=== PATIENT | male | born 1965 | race Caucasian/White ===

== ENCOUNTER → 2021-01-04 12:46 | Outpatient (CLI) | payer OTHER, SELFPAY ==
--- NOTE | 2021-01-04 | IMM_PTH ---
PATIENT: EMERY VYAS LOC: [place] U#:[id number] AGE/SX: 59/M ROOM: RE01/04/[address]: Dr. Ebenezer Rivera MD : 1965 BED: DIS: SPEC #: [id number] RECD: 01/10/21 07:39 STATUS: CHIDI REIleana #: [id number] ZOHRA: 01/04/21 00:[address]: Ebenezer Rivera DEPT: IMMUNOHISTOCHEMISTRY RECD BY: Julieta Arellano ENTERED: 01/10/21 07:39 SP TYPE: IMMUNO OTHR DR: Dr. Phoenix Oseguera MD Tissues: Neck, NOS Procedures: CK5-6 (add) P53 (add) Pankeratin (initial) P40 (add) PHYSICIAN & INSTITUTION [place] [id number] SPECIMEN INFORMATION: Tissue Source: Left upper neck mass, fine needle aspiration Clinical Info: Left upper neck mass Specimen Number: [id number] CPT code: 97921, 22812 x3 METHODOLOGY: Deparaffinized sections of prefer/formalin-fixed tissue or PAP/DQ stained slides are incubated with monoclonal/polyclonal antibodies/oligonucleotide probes. Localization is made via biotin free immunoperoxidase method. Appropriate controls are performed and reacted as expected. Results on target cell population are indicated in the following table: RESULTS: ANTIBODY / CLONE RESULT AE1-3 (AE1/AE3/PCK26) positive CK5-6 (D5 & 1684) positive P40 (BC28) positive P53 (DO-7) negative These tests were developed and their performance characteristics determined by [facility]. They may not have been cleared or approved by the U.S. Food and Drug Administration. The FDA has determined that such clearance or approval is not necessary. The above immunohistochemical/dualISH markers are ordered and reviewed by the Pathologist. INTERPRETATION: Left upper neck mass, fine needle aspiration: Consistent with metastatic squamous cell carcinoma. AM:margaret 01/10/2021 Case has been reviewed in consultation with Dr. Childers who concurs with the above diagnosis. IDC:KT
--- NOTE | 2021-01-04 | ASPOS_PTH ---
PATIENT: EMERY VYAS LOC: [place] U#:[id number] AGE/SX: 59/M ROOM: RE01/04/[address]: Dr. Ebenezer Rivera MD : 1965 BED: DIS: SPEC #: [id number] RECD: 01/04/21 11:00 STATUS: CHIDI ARIELLA #: [id number] ZOHRA: 01/04/21 00:[address]: Ebenezer Rivera DEPT: CYTOLOGY RECD BY: Joy Melton ENTERED: 01/04/21 11:01 SP TYPE: ASP HERE OTHR DR: Dr. Phoenix Oseguera MD Tissues: Neck, NOS Procedures: Surgery Specimen Level IV Cytology Other Fine Needle Asp on Site HEADER OPERATION: Left upper neck mass, fine needle aspiration PRE-OP DIAGNOSIS: Left upper neck mass TISSUE SUBMITTED: Left upper neck mass DIAGNOSIS CYTOLOGY Fine needle aspiration, left upper neck mass (smears and cell block): Atypical squamous epithelial cells consistent with metastatic squamous cell carcinoma. See comment. AM:margaret 01/10/2021 COMMENT The specimen is evaluated at the time of FNA by Dr. Moncada. Immediate Evaluation = Atypical epithelial cells suspicious for malignancy. Immunohistochemistry ([id number]) supports the above diagnosis. Case has been reviewed in consultation with Dr. Childers who concurs with the above diagnosis. IDC:SJ CYTOLOGY STUDY Slides are reviewed. CYTOLOGY GROSS Received is 0.5 ml of reddish fluid labeled with the patient's name, and designated left upper neck mass. Four imprints and five pap smears are made from the submitted fluid and the rest is added to Cytolyte for cell block preparation. Submitted for cytology study. / AM:margaret 01/04/2021 TC:0 CPT: 24324,50453,44130,29703
--- NOTE | 2021-01-04 12:55 | CT_ITS ---
STUDY: CT SOFT TISSUE NECK WITH CONTRAST REASON FOR EXAM: Male, 55 years old. NECK MASS RADIATION DOSAGE (If Supplied By Facility): CTDIvol = ( 19.45 ) mGy, DLP = ( 626.77 ) mGycm TECHNIQUE: The patient was scanned in a multi-detector CT scanner. High resolution transaxial imaging was performed following intravenous administration of IV 100mL Isovue-370. Sagittal and coronal images were reconstructed. Individualized dose optimization techniques were used for this CT. COMPARISON: None. FINDINGS: Normal bilateral parotid glands. Normal bilateral insurance verification rep spaces. Normal bilateral parapharyngeal spaces. Normal bilateral carotid spaces. Normal bilateral sublingual and submandibular glands and spaces. Normal visualized nasopharynx. Normal retropharyngeal space. Normal perivertebral space. Normal visualized bilateral faucial tonsils. The visualized tongue, tongue base and oropharynx are normal. 2.5 x 4.5 cm mass of soft tissue attenuation deep to the left sternocleidomastoid muscle and just superficial to the compressed left internal jugular vein at the level of the floor the mouth worrisome for jugular lymphadenopathy or other primary tumor. However, no other adenopathy is seen. This is superior to the carotid bifurcation. There is no demonstrated solid or cystic mass lesion. There is no abnormal contrast enhancement. Normal epiglottis, bilateral vallecula and hypopharynx. The pre-epiglottic and paraglottic adipose spaces are normal. Normal visualized bilateral piriform sinuses, aryepiglottic folds, vocal cords, and arytenoid-cricoid articulations. Normal subglottic trachea. Normal bilateral lobes of the thyroid gland. Normal visualized pulmonary apices. Normal visualized paranasal sinuses. Normal visualized cervical spine. CT/Soft Tissue Neck WITH Contrast IMPRESSION: Suspect left jugular lymphadenopathy at the level before the mouth or primary tumor within the carotid space. Clinical correlation is recommended to exclude mucosal mass. Electronically Signed: Camilo Mendoza MD at 14:44 EDT Tel , Service support ,
[2021-01-04 13:15] LABS: CREATININE FINGERSTICK 0.9 mg/dL (0.70-1.30); EGFR FINGERSTICK > 60.0000 mL/min (>60)
== END ==
PROVIDERS: PCP Family Medicine; Referring Provider Otolaryngology Otolaryngology/Facial Plastic Surgery; Visit Provider Otolaryngology Otolaryngology/Facial Plastic Surgery
DX: R22.1 Localized swelling, mass and lump, neck (principal)
CPT/HCPCS: 10021; 70491; 88161; 88305; 88341; 88342; Q9967

== ENCOUNTER → 2021-01-15 16:20 | Outpatient (CLI) | payer OTHER, SELFPAY ==
--- NOTE | 2021-01-15 16:30 | PET_ITS ---
EXAMINATION: FDG PET-CT INDICATIONS: A 55-year-old male with history of head and neck carcinoma presenting for initial staging examination. COMPARISON EXAMINATION: CT of the neck report dated 01/04/21 INDEX LESION SIZE SUV INTERPRETATION Left lateral neck level IIA-vascular space 30.7 x 42.6-mm (frame 255) 12.7 Fulfills quantitative criteria for viable neoplasm TECHNIQUE: Following the intravenous administration of F-18 deoxyglucose, multiplanar image acquisitions of the neck, chest, abdomen and pelvis to level of mid thigh, obtained at one hour post radiopharmaceutical administration contemporaneously interpreted with the current CT of the neck, chest, abdomen and pelvis, to level of mid thigh, dated 01/15/[address] of the neck report dated 01/04/21 reveals: FINDINGS: 1. Asymmetric increased FDG uptake is observed in the left lateral neck involving level IIA extending into the distribution of the vascular space generating a calculated maximal standard uptake value of 12.7. The maximal axial diameter of the corresponding mass density on review of CT of the head and neck dated 01/15/21 is 30.7-mm (transverse) x 42.6-mm (AP). 2. Normal physiologic distribution of the radiopharmaceutical is apparent in the hepatic (2.7) and splenic parenchyma, both renal units, bladder and visualized intestinal tract. The visualized portion of the cerebral cortex, cerebellar hemispheres and basal ganglia demonstrates uniform and preserved glucose metabolism. Diffuse radiopharmaceutical concentration is noted in all four quadrants of the abdomen and pelvis. Pertinent CT findings are as follows: CHEST: Coronary arterial calcification is observed. Subcentimeter bilateral axillary soft tissue densities are non-glucose avid. There are no parenchymal densities-nodules defined in the right and left hemithorax with discernible increased FDG uptake. ABDOMEN AND PELVIS: There is atherosclerotic calcification defined in the abdominal aorta without evidence of dilatation-aneurysm formation. Pelvic arterial calcification is defined. Bilateral fat containing inguinal hernias are observed. Right and left inguinal soft tissue with fatty hilus is ametabolic. Calcified phlebolith formation is encountered in the right-left lower hemipelvis. SKELETAL: Degenerative changes are noted in the cervical, thoracic and lumbar spine without evidence of increased radiopharmaceutical concentration. PET/PET/CT Tumor Base -Thigh Init IMPRESSION: 1. ABNORMAL EXAMINATION INDICATIVE OF MALIGNANT VIABLE NEOPLASM. 2. Increased FDG distribution defined in the left lateral neck-vascular space corresponding to mass density formation fulfills quantitative criteria for viable neoplasm. 3. No other quantitatively significant hypermetabolic abnormalities are noted. There is no definitive scintigraphic evidence of distant metastatic disease. Electronic Signature Camilo Baez D.O. Accurate Quantification of SUVs for this report are calculated using the exclusive [employer]. (U.S. Patent No. [phone] [id number]). Standardization and correction of the FDG SUV metric via [employer] technology allow for vendor non-specific objective quantitative examination comparison and optimization of the sensitivity and specificity of the FDG PET-CT examination. Electronically Signed: Camilo Baez DO at 22:50 EST Tel , Service support ,
== END ==
LOC: ONC 16:20 → RAO 02-14 13:34
PROVIDERS: PCP Family Medicine; Referring Provider Otolaryngology Otolaryngology/Facial Plastic Surgery; Visit Provider Otolaryngology Otolaryngology/Facial Plastic Surgery
DX: C76.0 Malignant neoplasm of head, face and neck (principal)
CPT/HCPCS: 78815; A9552

== ENCOUNTER 2021-01-21 09:43 | Day surgery (SDC) | payer OTHER, SELFPAY ==
--- NOTE | 2021-01-18 11:39 | EKG12_ITS ---
Test Reason : PRE OP Blood Pressure : / mmHG Vent. Rate : 075 BPM Atrial Rate : 075 BPM P-R Int : 154 ms QRS Dur : 076 ms QT Int : 360 ms P-R-T Axes : 016 000 012 degrees QTc Int : 402 ms Normal sinus rhythm Normal ECG Confirmed by AMAYA STRINGER, SAUD ([id number]), online content editor DAMIAN ISABEL ([id number]) on 01/21/2021 10:37:32 AM Referred By: Jamie Ruelas Confirmed By:SAUD CONDE MD
[2021-01-18 12:15] LABS: Hematocrit 42.9 % (40-54); Hemoglobin 14.6 g/dL (13.0-16.5); Mean Corpuscular Hgb 28.8 pg (27.0-32.0); Mean Corpuscular Volume 84.6 fL (80-94); Mean Platelet Vol. 10.4 fl (6.2-12.0); Platelet Count 311 K/mm3 (150-450); RBC Distribution Width CV 12.2 % (11.6-14.6); RBC Distribution Width SD 37.3 fl (35.1-43.9); Red Blood Count 5.07 M/mm3 (4.6-6.2)
[2021-01-18 12:48] LABS: Anion Gap 5 (5-15); BUN 13 mg/dL (7-18); BUN/Creat Ratio 14.4 RATIO (10-20); Calcium,Total 9.1 mg/dL (8.5-10.1); Chloride 103 mmol/L (98-107); EST Glomerular Filtration Rate 92 mL/min (>60); Est Glom Filt Rate - Afr Amer 112 mL/min (>60); Glucose 163 mg/dL (74-106); Potassium 3.9 mmol/L (3.5-5.1); Sodium Level 137 mmol/L (136-145)
[2021-01-21] VITALS (8 sets, daily range): BP systolic 148–172; BP diastolic 73–92; PULSE 84–91; RESP 16; TEMP 36.1–37.1; O2SAT 88–97; BMI 38.6
[2021-01-21] MEDS: Lactated Ringers 1,000 ML 100 ML IV (10:39)
--- NOTE | 2021-01-21 11:30 | LARBX_PTH ---
PATIENT: EMERY VYAS LOC: [facility] U#:[id number] AGE/SX: 55/M ROOM: RE01/21/[address]: Dr. Jeremy Ruelas MD : 1965 BED: DIS: 01/21/2021 SPEC #: [id number] RECD: 01/21/21 14:13 STATUS: CHIDI ARIELLA #: [id number] ZOHRA: 01/21/21 11:[address]: Jeremy Ruelas DEPT: SURGICAL PATHOLOGY RECD BY: Joy Melton ENTERED: 01/22/21 07:54 SP TYPE: LARYNX BX OTHR DR: Dr. Phoenix Oseguera MD Tissues: A - Tongue, NOS B - Tonsil, NOS C - Tonsil, NOS D - Tongue, NOS Procedures: Surgery Specimen Level III Surgery Specimen Level IV HEADER OPERATION: Direct laryngoscopy with biopsy, tonsillectomy PRE-OP DIAGNOSIS: Localized swelling, mass and lump neck; malignant neoplasm of head, face and neck TISSUE SUBMITTED: A ? Biopsy right tongue base, B ? Right tonsil, C ? Left tonsil, D ? Biopsy left tongue base MICROSCOPIC DIAGNOSIS A. Right base of tongue, biopsy: Benign lymphoid tissue. See comment. B. Right tonsil, tonsillectomy: Benign lymphoid hyperplasia. Organisms consistent with actinomyces. C. Left tonsil, tonsillectomy: Benign lymphoid hyperplasia. Organisms consistent with actinomyces. D. Left tongue base, biopsy: Polypoid fragment of benign squamous mucosa with mild chronic inflammation and focal vascular ectasia. AM:margaret 01/23/2021 COMMENT A. The lesion is consistent with lingual tonsil. Clinical correlation is suggested. MICROSCOPIC DESCRIPTION Slides are reviewed. GROSS DESCRIPTION A - Received in fixative is one container labeled with the patient's name and designated biopsy right tongue base. The specimen consists of a piece of carter mucosal tissue measuring 0.5 x 0.5 x 0.2 cm. The entire specimen is submitted in one cassette. B - Received in fixative is one container labeled with the patient's name and designated right tonsil. The specimen consists of a tonsil that weighs 1.6 gm and measures 2 x 1.5 x 0.4 cm. The external surface is pink-carter, smooth, glistening and somewhat lobulated. Focally it is hemorrhagic, granular and bears cautery artifact. Serial cross sections through the tonsil reveal normal tonsillar architecture. The specimen is serially sectioned and submitted entirely in one cassette. C - Received in fixative is one container labeled with the patient's name and designated left tonsil. The specimen consists of a tonsil that weighs 2 gm and measures 2.5 x 1 x 0.5 cm. The external surface is pink-carter, smooth, glistening and somewhat lobulated. Focally it is hemorrhagic, granular and bears cautery artifact. Serial cross sections through the tonsil reveal normal tonsillar architecture. The entire specimen is submitted in one cassette. D - Received in fixative is one container labeled with the patient's name and designated biopsy left tongue base. The specimen consists of a piece of carter mucosal tissue measuring 0.4 x 0.4 x 0.1 cm. The specimen is totally submitted in one cassette. / SJ:rg 01/22/21 TC:5 CPT: 41302 x2, 91913 x2 ADDENDUM ADDENDUM ADDENDUM ADDENDUM ADDENDUM ADDENDUM ADDENDUM ADDENDUM ADDENDUM ADDENDUM ADDENDUM ADDENDUM ADDENDUM ADDENDUM ADDENDUM ADDENDUM 04/05/2021 09:47 ADDENDUM 04/05/2021 09:47 ADDENDUM 04/05/2021 09:47 ADDENDUM 04/05/2021 09:47 ADDENDUM 04/05/2021 09:47 This addendum is added to incorporate an outside pathology consultation report. The case was examined at [facility] (#[id number]) and the following diagnosis was rendered. A. Base of tongue, right, biopsy: Squamous mucosa and associated lymphoid tissue with follicular hyperplasia. B. [place] tonsil, right, tonsillectomy: Follicular lymphoid hyperplasia. C. [place] tonsil, left, tonsillectomy: Follicular lymphoid hyperplasia. D. Base of tongue, left, biopsy: Squamous mucosa with reactive changes. Please see complete above mentioned consultation report in EMR
--- NOTE | 2021-01-21 12:29 | PCM.OPRPT ---
Problems Associated Problem List Diagnoses (1) Mass of neck with history of malignant neoplasm: Report of Operation Date of Procedure: 01/21/21 Pre-Operative Diagnosis: 1. carcinoma of unknown primary, neck Post-Operative Diagnosis: 1. carcinoma of unknown primary, neck Surgery/Procedure Performed:: 1. direct laryngoscopy with biopsy, use of the operative telescope 2. tonsillectomy, bilateral Surgeon: Jamie Ruelas Type of Anesthesia: General Description of Procedure: on the day of the procedure, after appropriate informed consent was obtained, the patient was brought to the operating room and placed in supine position on the operating table. he was placed under general endotracheal anesthesia by the anesthesiologist. the endotracheal tube was secured, the eyes were taped. a mouth guard was placed. the ronaldo laryngosope was inserted and suspended. the larynx, hypopharynx and visualized subglottis were all unremarkable. the epiglottis and tongue base bilaterally were unremarkable. targeted left and right tongue base biopsies were taken, although no obvious lesions or mucosal irregularities were noted. the ronaldo was removed and a juan r molly mouthgag was inserted and suspended. the right tonsil was grasped with a curved allis, retracted medially, dissected and removed using the bovie. hemostasis was achieved. the left tonsil was grasped with a curved allis clamp, retracted medially, dissected and removed using the bovie. hemostasis was achieved. of note, the plane between the tonsil and the fossa mid-tonsil was quite fibrotic and abnormal appearing without any overt cancer seen. hemostasis was achieved. a valsalva was held and hemostasis was observed. the table was rotated 90 degrees toward the anesthesiologist and was extubated uneventfully. he was transferred to the PACU in stable condition.
== END 2021-01-21 15:05 | disposition home or self-care (01) ==
LOC: SDC 09:43 → AC 09:44
PROVIDERS: PCP Family Medicine; Referring Provider Otolaryngology; Visit Provider Otolaryngology
PROC: 0CJS8ZZ Inspection of Larynx, Via Natural or Artificial Opening Endoscopic (ICD-10-PCS; CPT 31575; principal; 2021-01-21 11:15)
DX: C80.1 Malignant (primary) neoplasm, unspecified (principal); R59.9 Enlarged lymph nodes, unspecified
CPT/HCPCS: 00320; 31535; 42826; 36415; 80048; 85027; 87426; 88304; 88305; 93005; J7120; J2405

== ENCOUNTER 2021-02-27 05:37 | Day surgery (SDC) | payer OTHER, SELFPAY ==
[2021-02-27 06:17] VITALS: BP 138/82; PULSE 85; RESP 16; TEMP 36; O2SAT 95; BMI 37.8
[2021-02-27] MEDS: Lactated Ringers 1,000 ML 30 ML IV (06:37)
[2021-02-27] MEDS: Bupivacaine Mpf 0.5% 30 ML VIAL (06:45)
--- NOTE | 2021-02-27 07:06 | HP.PCM_ITS ---
History and Physical Date of Admission: 02/27/21 Date of Service: 02/25/21 MR#:[id number]: EMERY VYASRep #:[id number] Provider:Sami Saha/Sex: 55/M [facility] Int[facility] Vital Signs 02/25/21 13:07 Height 5 ft 10 in Weight: 265 lb BMI 38.0 BP 166/91 H Blood Pressure Location Rt brachial Position Sitting Respiration 18 Pulse 90 Pulse Source Monitor Temp 98.0 F Temp Source Temporal Pulse Oximetry (%) 97 Oxygen Delivery Method room air Intake Visit Reasons: Port/Peg Consult Chief Complaint: Port/PEG consult Lapel Stitcher Required: No Accompanied by: Is patient in pain?: No Allergies No Known Allergies Allergy (Verified 02/25/21 13:08) Medications acetaminophen [Tylenol] 650 mg PO Q4H PRN 01/18/21 [History Confirmed 02/25/21] amlodipine [Norvasc] 5 mg PO BID 01/18/21 [History Confirmed 02/25/21] multivitamin 1 cap PO DAILY 01/18/21 [History Confirmed 02/25/21] qrxuzkh-mgwv-yftmx-oreg-capryl 1 cap PO BID 01/18/21 [History Confirmed 02/25/21] hydralazine 10 mg PO BID 01/21/21 [History Confirmed 02/25/21] omeprazole 40 mg PO DAILY 01/21/21 [History Confirmed 02/25/21] hydralazine 10 mg tablet 10 mg PO BID 02/18/21 [History Confirmed 02/25/21] PFSH Medical History Alcohol use Cancer HTN (hypertension), benign Hypertension Leg cramps Non-smoker Wears glasses Surgical History Hx of tonsillectomy No history of previous surgery Family History Brother Cancer CANCER OF RIB AND ANOTHER BROTHER MELANOMA Social History Smoking Status: Never smoker HPI HPI HPI: EMERY VYAS, is a 55 M who presents to the office today for port and PEG due to 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 Patient states screening first radiation treatment to be 03/04/2021. Patient is also meeting with oncology tomorrow. ROS General General: Yes weight change and fatigue; No appetite, colon cancer or breast cancer HEENT HEENT: Yes swollen glands; No difficulty swallowing, eye injury, eye surgery or hoarseness Endo Endocrine: No thyroid disease, diabetes mellitus, thyroid cancer, Hair loss, heat intolerance or cold intolerance Skin Skin: No rash or changing moles Musc Musculoskeletal: No back problems, arthritis, rheumatoid arthritis, gout or joint pain Cardio Cardiovascular: Yes high blood pressure; No murmur, pacemaker, heart disease, atrial fibrillation, heart attack, heart stent, palpitations, shortness of breat with exertion or chest pain Psych Psychiatric: No depression, anxiety or hearing voices Resp Respiratory: No shortness of breath, Yes sleep apnea, Yes cough, No COPD, No asthma, No emphysema and No wheezing Gastro Gastrointestinal: No abdominal pain, No nausea or vomiting, No diarrhea, No constipation, No blood in stool, Yes acid reflux, No hemorrhoids, No ulcers, No gallbladder problem and No black,tarry stools [place] Hematologic: No blood thinners, No blood disorders, No bleeding, No anemia and No blood clots Neuro Neurologic: No confusion Exam Const General: cooperative, healthy appearing, comfortable and no acute distress Neck Neck mass: Yes (Left upper neck extending superior to the mandible) Chest Other: Normal palpation of bilateral upper chest Resp Effort & Inspection: normal respiratory effort Cardio Rate: regular rate GI Inspection: non-distended Palpation: soft, no guarding and nontender Skin General: no rashes or lesions noted Neuro General: patient oriented x3 Psych Affect: normal affect COVID (Procedure Consent) Procedure Criteria Procedure Criteria: Yes Elective The surgeon/proceduralist and patient have discussed in detail the risk of exposure to and/or potential harm posed by the COVID-19 virus with having a surgery/procedure at this time versus the risk of delaying the surgery/procedure. It is not possible to know either the risk of delaying the surgery or procedure or chance of getting an infection with perfect accuracy, but a joint decision was made between the patient and the surgeon/proceduralist to proceed at this time with the scheduled surgery/procedure as indicated on the consent form. 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 Yessica Neves MD: I have discussed above with the patient- Port-a-Cath placement. Right IJ Patient has been counseled as to the risks/benefits of the procedure. I have explained the risks of the surgery, including but not limited to: infection, bleeding, injury to any blood vessels/nerves, injury to lungs (such as pneumothorax or hemothorax and need for chest tube), not having any access, nonfunctioning of port due to thrombosis, infection of port, etc. the patient understands and agrees to proceed. I have answered all the patient's questions to the patient?s satisfaction and the patient has no further questions. I have discussed the above with the patient. I have offered the patient EGD with placement of PEG tube I have explained the risks/benefits of the procedure and described the procedure. I have discussed the risks with the patient, including but not limited to: infection, bleeding, perforation of the GI tract requiring emergency surgery, inability to complete the procedure, injury to any internal organs, complications of anesthesia, etc. - the patient understands and agrees to proceed. I have answered all the patient's questions to the patient's satisfaction and the patient has no further questions. Yessica Neves M.D. Pager: [phone] [facility] [address] [place] [address], [address] [place] [address] Office: 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
[2021-02-27] MEDS: Lidocaine 1% /Epi 1:100 (20ml) 20 ML Vial (07:45)
--- NOTE | 2021-02-27 08:26 | PCM.OPRPT ---
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 Placement of right IJ Port-A-Cath 2. Use of ultrasound 3. Use of fluoroscopy Surgeon: Yessica Neves Type of Anesthesia: Local MAC Anesthesiologist: Franco Bradshaw Special Medications: Ancef 3 g IV x1 Specimen's removed: None Estimated Blood Loss (mL): Minimal Description of Procedure: After informed consent was given, the patient was brought to the operating room and placed in the supine position. Appropriate time out protocol was followed. Patient was then given IV conscious sedation for anesthesia. The patient's right upper chest and neck were then prepped with a surgical skin preparation and sterile surgical drapes were placed. After proper landmarks were ascertained, the skin at the upper right chest area was then infiltrated with 1:1 mixture of 1% lidocaine with epinephrine and 0.5% marcaine. A needle trocar was then inserted into the right internal jugular vein with ultrasound guidance-multiple vessels were viewed with u/s and the right IJ was chosen-- and there was good aspiration of venous blood. A wire was then threaded into the needle trocar and this was visualized under fluoroscopy to ensure that the wire was in the superior vena cava. Once this was done, then the needle trocar was removed. A small skin zane was made with an 11 blade knife at the wire entrance site. The dilator with the introducer sheath attached was then placed over the wire into the right internal jugular vein via the Seldinger technique and this was visualized under fluoroscopy. The dilator and sheath were in proper position as visualized by fluoroscopy. A subcutaneous pocket was then created caudad to the catheter insertion site. A transverse skin incision was made after the skin and subcutaneous tissues were infiltrated with local anesthetic. Blunt dissection was then used to create a space large enough for placement of the subcutaneous port. The catheter was then tunneled into the subcutaneous pocket. The wire and dilator were then removed. The catheter was then threaded into the introducer sheath and was positioned with its tip at the junction of the superior vena cava and the right atrium as visualized under fluoroscopy. The excess catheter was transected. The catheter was then attached to the subcutaneous port using manufacturers guidelines. The catheter was flushed with a heparin saline mixture prior to placement. Hemostasis was carefully controlled with electrocautery. The port was sutured to the subcutaneous fascia using 2-0 Vicryl suture at two sites. The port was then placed in the subcutaneous pocket. The incision were reapproximated with interrupted subdermal 3-0 vicryl sutures. The skin was reapproximated with 3-0 nylon suture in a interrupted fashion. Steristrips were used for reinforcement of the skin closure at IJ insertion site and a sterile opsite dressings were applied. The patient tolerated the procedure well. Grafts/Implants Used: Bard PowerPort isp M.R.I. 6Fr Lot lot [id number] Complications none
--- NOTE | 2021-02-27 08:28 | EX.PCM.DISCH ---
Discharge Instructions Procedure Port-A-Cath Diet Discharge Diet: Light diet - advance as tolerated Activity May shower in (days): 5 (Keep port site clean and dry x5 days. Neck incision okay to get wet after 1 day. Okay to lower shower and upper sponge bath. OR okay to taper off port site with a Ziploc bag to shower) Lifting Restrictions: No lifting > 15 pounds for 3 days with the arm on the side of the port Dressing / Incision Call your doctor if your incision/area has: Continuous Slow Oozing, Sudden Increased Bleeding, Increased Pain/ Swelling, Increased Redness, Foul Smelling Discharge and Swelling at the incision site Call your doctor if you observe: Fever of 101 or Higher Change Dressing in: 2 days Additional Dressing/Incision Instructions:: Flush PEG site daily. And clean site daily Follow Up Care Please Follow Up With: Yessica Neves MD When: In 10 days for permanent suture removal?call office for appointment Test Results: Test results from this visit will be discussed in further detail at your follow-up appointment, if applicable. Discharge Plan Admission Attending Provider: Yessica Neves Primary Care Provider: Phoenix Oseguera Discharge Orders/Prescriptions Prescriptions: New oxycodone-acetaminophen [Percocet] 5-325 mg tablet 1 tab PO Q6H PRN (Reason: pain) 3 Days Qty: 5 RF: 0 Continued acetaminophen [Tylenol] 325 mg Tablet 650 mg PO Q4H PRN (Reason: Pain) RF: 0 amlodipine [Norvasc] 5 mg Tablet 5 mg PO BID RF: 0 multivitamin Capsule 1 cap PO DAILY RF: 0 omeprazole 40 mg Capsule,Delayed Release(Dr/Ec) 40 mg PO DAILY RF: 0 hydralazine 10 mg Tablet 10 mg PO BID RF: 0 Referrals / Follow Up: Phoenix Oseguera MD [Primary Care Provider] - Disposition Disposition (needs filled in before D/C Order can be placed): Home, Self Care
[2021-02-27 08:35] VITALS: BP 138/82; BP 141/76; PULSE 84; RESP 16; TEMP 37; O2SAT 99
--- NOTE | 2021-02-27 08:38 | OP.EGD_ITS ---
Patient Name: Scott Hannah Procedure Date: 02/27/2021 8:04 AM Date of : 1965 Age: 55 Procedure: Upper GI endoscopy Indications: Suspected tumor of the GI tract, Place PEG, Left Neck metastatic squamous Providers: Yessica Neves MD Medicines: Monitored Anesthesia Care Patient Profile: This is a 55 year old male. Complications: No immediate complications. Procedure: Pre-Anesthesia Assessment: - Prior to the procedure, a History and Physical was performed, and patient medications and allergies were reviewed. The patient's tolerance of previous anesthesia was also reviewed. The risks and benefits of the procedure and the sedation options and risks were discussed with the patient. All questions were answered, and informed consent was obtained. Prior Anticoagulants: The patient has taken no previous anticoagulant or antiplatelet agents. ASA Grade Assessment: Per anesthesia. After reviewing the risks and benefits, the patient was deemed in satisfactory condition to undergo the procedure. After obtaining informed consent, the endoscope was passed under direct vision. Throughout the procedure, the patient's blood pressure, pulse, and oxygen saturations were monitored continuously. The gastroscope was introduced through the mouth, and advanced to the second part of duodenum. The upper GI endoscopy was accomplished without difficulty. The patient tolerated the procedure well. Scope In: 8:09:17 AM Scope Out: 8:20:17 AM Total Procedure Duration Time 0 hours 11 minutes 0 seconds Findings: The Z-line was variable and was found 40 cm from the incisors. The examined duodenum was normal. The patient was placed in the supine position for PEG placement. The stomach was insufflated to appose gastric and abdominal byrd. A site was located in the body of the stomach with excellent transillumination for placement. The abdominal wall was marked and prepped in a sterile manner. The area was anesthetized with 4 mL of 1% lidocaine. The trocar needle was introduced through the abdominal wall and into the stomach under direct endoscopic view. A snare was introduced through the endoscope and opened in the gastric lumen. The guide wire was passed through the trocar and into the open snare. The snare was closed around the guide wire. The endoscope and snare were removed, pulling the wire out through the mouth. A skin incision was made at the site of needle insertion. The externally removable 20 Fr Bard gastrostomy tube was lubricated. The G-tube was tied to the guide wire and pulled through the mouth and into the stomach. The trocar needle was removed, and the gastrostomy tube was pulled out from the stomach through the skin. The external bumper was attached to the gastrostomy tube, and the tube was cut to remove the guide wire. The final position of the gastrostomy tube was confirmed by relook endoscopy, and skin marking noted to be 3 cm at the external bumper. The final tension and compression of the abdominal wall by the PEG tube and external bumper were checked and revealed that the bumper was loose and lightly touching the skin. The feeding tube was capped, and the tube site cleaned and dressed. No gross lesions were noted in the entire examined stomach. Impression: - Z-line variable, 40 cm from the incisors. - Normal examined duodenum. - No gross lesions in the stomach. - An externally removable PEG placement was successfully completed. - No specimens collected. Recommendation: - Discharge patient to home. - Resume previous diet. - Continue present medications. - Please follow the post-PEG recommendations including: flush PEG daily with 30-60 ml water and clean site with soap and water daily and dry thoroughly. Procedure Code(s): --- Professional --- 82140, Esophagogastroduodenoscopy, flexible, transoral; with directed placement of percutaneous gastrostomy tube Diagnosis Code(s): --- Professional --- K22.8, Other specified diseases of esophagus Z43.1, Encounter for attention to gastrostomy CPT copyright 2017 [employer]. All rights reserved. The codes documented in this report are preliminary and upon pocketed spring machine operator review may be revised to meet current compliance requirements. MD Yessica Agrawal MD 02/27/2021 8:38:25 AM This report has been signed electronically. Number of Addenda: 0 Note Initiated On: 02/27/2021 8:04 AM
--- NOTE | 2021-02-27 08:39 | OP.CCLET_ITS ---
02/27/2021 Phoenix Oseguera [address] [place] [address] [place] [address] Re : Upper GI endoscopy procedure for Scott Boydbreanne Dear Dr. Oseguera This procedure was performed on Saturday, February 27, 2021. My impressions and recommendations are as follows: Impressions : - Z-line variable, 40 cm from the incisors. - Normal examined duodenum. - No gross lesions in the stomach. - An externally removable PEG placement was successfully completed. - No specimens collected. Recommendations : - Discharge patient to home. - Resume previous diet. - Continue present medications. - Please follow the post-PEG recommendations including: flush PEG daily with 30-60 ml water and clean site with soap and water daily and dry thoroughly. My findings are described in the full procedure note, which is enclosed. If I can be of further assistance, please feel free to contact me at Doctor phone number(s): , Work: . Sincerely, MD Yessica Agrawal MD 02/27/2021 8:38:25 AM This report has been signed electronically.
[2021-02-27 08:40] VITALS: BP 138/82; BP 151/76; PULSE 79; RESP 16; O2SAT 95
--- NOTE | 2021-02-27 08:40 | RAD_ITS ---
STUDY: X-RAY CHEST REASON FOR EXAM: Male, 55 years old. Port -- pacu TECHNIQUE: Single AP portable view of the chest. COMPARISON: None. FINDINGS: A right-sided portacatheter has been placed. The tip is at the junction of the superior vena cava and right atrium. Mild degree of elevation of the right hemidiaphragm. Lungs are clear. There is no demonstrated pleural abnormality. Normal size heart. Normal mediastinum and patti. Normal visualized pulmonary arteries. Normal visualized aortic arch and descending thoracic aorta. Normal visualized thoracic spine. Normal visualized ribs, clavicles, and shoulders. There is no demonstrated abnormality of the visualized soft tissue structures of the upper abdomen. RAD/CXR for Line Placement IMPRESSION: The tip of the right-sided portacatheter is at the junction of the superior vena cava and right atrium. Electronically Signed: Cleveland Ndiaye MD at 9:05 EST , Service support ,
[2021-02-27 08:45] VITALS: BP 138/82; BP 154/82; PULSE 84; RESP 16; O2SAT 96
[2021-02-27 08:50] VITALS: BP 138/82; BP 150/81; PULSE 82; RESP 16; TEMP 36.7; O2SAT 95
[2021-02-27 10:01] VITALS: BP 121/59; BP 138/82; PULSE 77; RESP 16; TEMP 36.5; O2SAT 97
== END 2021-02-27 10:07 | disposition home or self-care (01) ==
LOC: SDC 05:42 → AC 05:43
PROVIDERS: PCP Family Medicine; Referring Provider Surgery; Visit Provider Surgery
PROC: (CPT 36561; principal; 2021-02-27 07:15)
PROC: 0DJ08ZZ Inspection of Upper Intestinal Tract, Via Natural or Artificial Opening Endoscopic (ICD-10-PCS; CPT 43235; principal; 2021-02-27 08:10)
DX: Z45.2 Encounter for adjustment and management of vascular access device (principal); C79.89 Secondary malignant neoplasm of other specified sites; K22.89 Other specified disease of esophagus; Z43.1 Encounter for attention to gastrostomy; I10 Essential (primary) hypertension
CPT/HCPCS: 00532; 36561; 43246; 71045; 77001; 87426; C9803; J7120; J2405

== ENCOUNTER 2021-03-22 12:37 | Outpatient (CLI) | payer OTHER, SELFPAY ==
--- NOTE | 2021-03-22 12:42 | ST.MBS ---
Modified Barium Swallow - Patient Information Study Date: 03/22/21 Study Time: 13:00 Direct Billable Minutes: 60 Total Minutes procedure & reportin Diagnosis: Mass of neck with history of malignant neoplasm (R22.1) Referring Physician: Shilo Vera Reason for Referral: Obtain baseline of swallow function with anticipated dysphagia related to short term and chcf effects of radiation treatment. 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 Port and PEG tube placement 02/27/2022. Pt evaluated by outpatient speech therapy to address anticipated dysphagia during and post radiation treatment. He was referred for MBS study to establish baseline swallow function and evaluate risk for aspiration. The patient is currently receiving chemoradiation (initiated 03/04/2021), which is planned for 6.5-7 weeks. Current Diet Ordered: Regular Textures / Thin Liquids Dentition: WNL Mental Status: WNL Respiratory Status: Oxygenating on Room Air - Penetration-Aspiration Scale Penetration-Aspiration Scale: OBJECTIVE ASSESSMENT OF SWALLOW FUNCTION (QUANTITATIVE ? PER TRIAL): PENETRATION / ASPIRATION SCALE (MARIANO): 1 = does not enter airway 2 = enters airway/above vocal folds/ejected 3 = enters airway/above vocal folds/not ejected 4 = enters airway/contacts vocal folds/ejected 5 = enters airway/contacts vocal folds/not ejected 6 = enters airway/below vocal folds/ejected 7 = enters airway/below vocal folds/not ejected despite effort 8 = enters airway/below vocal folds/no effort VIDEOFLOROSCOPIC SCALE SCORE (MARIANO): Grade I = aspiration of material that has penetrated into the laryngeal vestibule, intact cough reflex Grade II = aspiration < 10 % of the bolus, intact cough reflex Grade III = aspiration of < 10 % of the bolus, reduced cough reflex or aspiration of > 10 % of the bolus, intact cough reflex Grade IV = aspiration of > 10 % of the bolus, reduced cough reflex - Penetration-Aspiration Scale Score Thin Liquid via teaspoon Result: 1= does not enter airway Thin Liquid via small single sip from cup Result: 1= does not enter airway Thin Liquid via sequential sips from cup Result: 1= does not enter airway [place] Thick Liquid via small single sip from cup Result: 1= does not enter airway Honey Thick Liquid via small single sip from cup Result: 1= does not enter airway Pudding Result: 1= does not enter airway Cookie Result: 1= does not enter airway Thin Liquid via single sip from straw Result: 1= does not enter airway Thin Liquid via sequential sips from straw Result: 1= does not enter airway - Oral Phase Labial Seal: No Labial Escape Tongue Control During Bolus Hold: Escape to lateral buccal cavity/floor of mouth Bolus Preparation/Mastication: Timely and efficient chewing and mashing Bolus Transport/Lingual Motion: Brisk tongue motion Oral Residue: Trace residue lining oral structures - Pharyngeal Phase Initiation of Pharyngeal Swallow: Bolus head in valleculae Soft Palate Elevation: No bolus between soft palate and pharyngeal wall Laryngeal Elevation: Partial superior movement thyroid cart/partial apprx aryt-epig petiole Anterior Hyoid Excursion: Partial anterior movement Epiglottic Movement: Complete inversion Laryngeal Vestibule Closure at Height of Swallow: Complete; no air/contrast in laryngeal vestibule Pharyngeal Stripping Wave: Present - complete Pharyngoesophageal Segment Opening: Complete distension and complete duration; no obstruction of flow Tongue Base Retraction: Trace column of contrast between tongue base & post. pharyngeal wall Pharyngeal Residue: Trace residue within or on pharyngeal structures - Esophageal Phase Esophageal Clearance: Complete clearance - Diagnosis/Impression Diagnosis: Swallow function grossly WNL Impression: The patient is reporting moderate xerostomia and mild odynophagia (pain level 3-4). He reported swallowing became more difficult this week. The patient presents with mildly decreased laryngeal elevation and anterior hyoid excursion; however, he demonstrates good airway closure. No laryngeal penetration or aspiration observed during the study. He required piecemeal deglutition to clear the cookie trial. Would anticipate increased difficulty with mastication and bolus formation due to xerostomia, as well as worsening odynophagia as the patient continues with chemoradiation therapy. Would recommend continuing outpatient speech therapy services to follow the patient at bedside with repeat MBS study 3 months post chemoradiation treatment. - Recommendations Diet: Regular Textures, Thin Liquids Compensatory Strategies: Small Bites, Small Sips, Slow Rate, Sitting upright, Remain sitting upright for 30 minutes after PO intake Recommend Repeat Modified Barium Swallow: Yes Need for Skilled Speech Therapy Services: Yes Education Completed: 1. Described result of evaluation., 2. Pt understands evaluation & agrees with goals and treatment plan., 4. Family/caregivers understand evaluation & agree w/ goals & tx plan. - Status Active ST Patient: Active - Contact Information [facility] Speech Therapy:: Eugenia Berg M.A. [facility] Speech-Language Pathologist [facility] [address] [place] [address] [email or web address] [phone] 03/22/21 13:46
== END 2021-03-22 23:59 | disposition home or self-care (01) ==
LOC: RAD 12:37
PROVIDERS: PCP Family Medicine; Referring Provider Student in an Organized Health Care Education/Training Program; Visit Provider Student in an Organized Health Care Education/Training Program
DX: Z45.2 Encounter for adjustment and management of vascular access device (principal); R22.1 Localized swelling, mass and lump, neck
CPT/HCPCS: 74230; 77336; 77386; 92611

== ENCOUNTER 2021-03-28 16:41 | Outpatient (RCR) | payer OTHER, SELFPAY | END 2021-04-08 23:59 | LOC: DC 16:41 | PROVIDERS: PCP Family Medicine; Visit Provider Student in an Organized Health Care Education/Training Program | DX: C80.1 Malignant (primary) neoplasm, unspecified (principal); C79.89 Secondary malignant neoplasm of other specified sites | CPT/HCPCS: G0108 ==

== ENCOUNTER 2021-04-25 13:24 | Outpatient (CLI) | payer OTHER, SELFPAY ==
--- NOTE | 2021-04-25 13:25 | VDLE_ITS ---
Reason For Study: Swelling RIGHT LEFT GSV is normal. GSV is normal. CFV is compressible, spontaneous, phasic, CFV is compressible, spontaneous, phasic, competent and demonstrates normal competent, and demonstrates normal augmentation. augmentation. FV is compressible, spontaneous, phasic, FV is compressible, spontaneous, phasic, competent and demonstrates normal competent and demonstrates normal augmentation. augmentation. POP V is compressible, spontaneous, phasic, POP V is compressible, spontaneous, phasic, competent and demonstrates normal competent and demonstrates normal augmentation. augmentation. T/P Trunk is compressible. T/P Trunk is compressible. PTV is compressible. PTV is compressible. RT PerV is compressible. LT PerV is compressible. Procedure This is a venous duplex using B-mode, color flow and spectral Doppler. Exam performed in department. A preliminary report was called and/or faxed to [facility]. VL/Venous Duplex US - Tomas Extrem Interpretation Summary No evidence for acute deep venous thrombosis bilateral lower extremities with p atent and compressible bilateral great saphenous veins. Ordering Physician: Alexia Verde Referring Physician: MD Phoenix Chaudhary Performed By: Maia Rodriguez RVT
== END 2021-04-25 23:59 | disposition home or self-care (01) ==
LOC: CVS 13:24
PROVIDERS: PCP Family Medicine; Referring Provider Nurse Practitioner Family; Visit Provider Nurse Practitioner Family
DX: R60.0 Localized edema (principal)
CPT/HCPCS: 93970

== ENCOUNTER 2021-06-14 11:30 | Outpatient (RCR) | payer OTHER, SELFPAY ==
--- NOTE | 2021-02-25 10:57 | HP.SP.AD_ITS ---
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 The patient is beginning chemoradiation 03/04/2021, which is planned for 6.5-7 weeks. He is meeting with a surgeon today to plan for port and PEG tube placement. 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 No patient concerns at this time. Objective Oral Motor - Oral Status Dentition: WNL - Labial Impairment: WNL Closure: WNL Pucker: WNL Retraction: WNL - Lingual Impairment: WNL Protrusion: WNL Lateralization: WNL - Jaw Impairment: WNL Opening: WNL Closing: WNL - Oral Motor Comments Comments: Cranial Nerve Examination: TRIGEMINAL NERVE (V) ? impaired; mildly decreased laryngeal elevation. FACIAL NERVE (VII) ? no clinical abnormalities observed. VAGUS NERVE (X) ? impaired; slight deviation to L side. HYPOGLOSSAL NERVE (XII) ? no clinical abnormalities observed. - Respiratory Status Respiratory Status: Room Air Subjective Dysphagia - Symptoms Reported Other: Takes more effort to swallow. - Current Diet Solids Current Diet: Regular - Current Diet Liquids Current Liquids: Thin Objective Dysphagia - Administered by Administered by: Self - Thin Liquids Administred via: Cup Laryngeal Elevation: Impaired Oral Holding: No Gagging: No Comments: Consistent use of double swallow. Patient independently takes large sips. No overt s/s of aspiration. Mildly decreased laryngeal elevation, although difficult to palpate due to swelling of neck. - Pureed Comments: No overt s/s of aspiration. Good oral clearance. - Regular Patient Report: Pt noted preference for R sided bolus placement. Comments: Adequate mastication, no overt s/s of aspiration, good oral clearance. - Results Swallowing Within Normal Limits: No Swallowing Diagnosis: Pharyngeal Phase Dysphagia Severity: Mild Dysphagia Assessment - Swallowing Impairment Contributing Factors to Swallowing Impairment: Reduced Laryngeal Excursion Other: Consistent use of double swallow. - Impact Impact on Safety & Functioning: Risk for Aspiration, Risk for Inadequate Nutrition/Hydration Comments: Pt is planned for 6.5-7 weeks of chemoradiation treatment, which greatly increases patient's risk for developing worsening dysphagia. Pt is at increased risk for aspiration and aspiration related illnesses. - Recommendations Modified Barium Swallow/Cookie Swallow Recommended: Yes Swallowing Treatment: Yes - Diet Texture Recommendations Solids Other: Regular Liquids: Thin - Safety Saftey Precautions/Swallowing Recommendations (Check all that Apply): Upright Position at Least 30 Minutes After Meals, Small Sips & Bites when Eating, Multiple Swallows FOIS - Functional Oral Intake Scale Total oral diet with no restrictions: Level 7 SP Oncology PSS-HN - PSS-HN Test Normalcy of Diet: Full diet (liquid assist) Scale Result:: 90 Public Eating: No restrictions of place, food or companions-eats out any opportunity Public eating scale: 100 Understandability of Speech: Always understandable Understandability of Speech Scale: 100 Plan - Plan Plan: Will recommend the patient for skilled outpatient dysphagia therapy to address mild pharyngeal dysphagia related to malignant neoplasm of neck s/p bilateral tonsillectomy and to provide the patient further education re: prophylactic oropharyngeal exercise program, diet texture recommendations, aspiration precautions, and compensatory strategies to decrease risk for aspiration. Additionally, will provide ongoing assessment of diet tolerance during and post chemoradiation treatment. Without skilled ST services, the patient is at risk for aspiration, weight loss, and malnutrition. - Recommendations MBS: Yes Treatment Warranted: Yes - Frequency Frequency: Every Other Week Duration: 12 Months - Prognosis Prognosis: Good - Goals that are Established: Determination:: Goals will be added/modified as deemed necessary and appropriate. Therapy will be discontinued when results of re-evaluation indicate therapy is no longer needed or lack of progress has been documented. - Goal #1-5 Goal #1: The patient will consume least restrictive diet textures without overt s/s of aspiration with 90% accuracy with minimal verbal cues for use of compensatory strategies to decrease risk for aspiration. Goal #2: The patient will complete an oropharyngeal exercise program during and post radiation treatment X10 repetitions, 3-5X daily independently to improve and maintain strength, ROM, and coordination of swallowing mechanism. Goal #3: The patient will participate in MBS study to objectively assess swallow function and provide recommendations for safest, least restrictive diet and compensatory strategies to reduce risk for aspiration. Education - Patient Instruction Patient Education: Diagnosis, Treatment Plan, Goals, Safety Precautions, Diet Level, Home Exercise Program Other Education: Education provided regarding the potential impacts of chemoradiation treatment on swallow function during and post treatment, including effects such as mucositis, dysgeusia, hypogeusia, radiation fibrosis, and disuse atrophy which may result in restricted range of motion and weakness of swallowing mechanism. Discussed impaired swallowing and increased risk for aspiration, aspiration related illnesses, weight loss, and malnutrition. Discussed importance for speech therapy to monitor and address dysphagia both pre, during, and post chemoradiation treatment to maintain optimal swallow function through continued education, ongoing assessment of diet tolerance, and prophylactic exercise program. Provided the patient a handout and demonstration of prophylactic oropharyngeal exercise program. The patient provided return dem onstration with all exercises with minimal verbal cues and demonstration. The patient would benefit from continued training to monitor proper execution of exercises and encourage strict adherence to exercise program. Person Taught: Patient, Significant Other Teaching Method: Discussion, Demonstration, Handout, Teach back Response to teaching: Return demonstration, Verbalize understanding, Reinforcement needed
--- NOTE | 2022-02-04 14:06 | HP.SP.DC_ITS ---
ST Discharge Summary - Discharged: Discharge: The patient was evaluated by speech therapy 02/25/21 to address dysphagia secondary to squamous cell carcinoma of the head neck with unknown primary bilateral tonsillectomy (01/21/2021). The patient participated in chemoradiation 03/04/2021 for 6.5 weeks. During treatment, he participated in OP speech therapy to manage diet tolerance and to train in oropharyngeal strengthening. He participated in 3 MBSS during POC, most recently in December 2021, which revealed mild dysphagia, no aspiration, and no major changes from the previous study. LATEX FASHIONS DESIGNER is recommending follow up MBSS yearly at this time. Further dysphagia therapy is not warranted at this time, but LATEX FASHIONS DESIGNER recommends r eturning to ST if difficulty adhering to home exercise program or increased s/s of aspiration with oral intake.
== END 2021-06-14 19:00 | disposition home or self-care (01) ==
LOC: SP 11:30
PROVIDERS: PCP Family Medicine; Referring Provider Student in an Organized Health Care Education/Training Program; Visit Provider Student in an Organized Health Care Education/Training Program
DX: C80.1 Malignant (primary) neoplasm, unspecified (principal); C79.89 Secondary malignant neoplasm of other specified sites
CPT/HCPCS: 92526; 92610

== ENCOUNTER 2021-06-21 09:00 | Outpatient (RCR) | payer OTHER, SELFPAY ==
--- NOTE | 2021-06-05 09:54 | HP.OTEVAL ---
Patient's Visit Information EMERY VYAS is a 55 year old M, referred to Occupational Therapy by Dr. Shilo Vera DO, with a diagnosis of lymphedema. Date of Evaluation: 06/04/21 Occupational Therapist: Mirlande Hunter, COLUMBAR/Jose, CHT - Subjective This 55 year old male was seen for OT eval with dx of lymphedema-. pt states he underwent chemo and radiation for 7 weeks. pt states he feels he did ok with radiation but now has developed swelling in his chin/neck-. last radiation 7 weeks ago. pt arrives with his to OT to learn how they can mtg. his lymphedema. - Objective head 65cm. neck 45cm - Goals Demonstrate a 20% reduction in edema by d/c: Yes Demonstrate adequate knowledge of self-massage by 2nd week: Yes Demonstrate adequate knowledge skin care/prec by 2nd week: Yes Demonstrate adequate knowledge therapeutic exercises by d/c: Yes Select approp compression garment w/donning/care/wear by d/c: Yes Voice need to replace compression garment every 4-6mo by dc: Yes - Rehabilitation General Assessment: pt demo need for skilled OT services 3-4 visits to ed. pt and his family on lymphedema treatments and compression devices for head/neck lymphedema. Today therapist ed. pt on ROM ex, self manual lymph drainage, compression garment use and k- tape to support fluid circulation. PT and pts demo understanding and agree to POC. Due to pts dx and lymphedema pt would benefit from use of a flexitouch home unit to assist in life long mtg of lymphedema. Rehabilitation Potential: Good - Anticipated Interventions Education re Diagnosis, Manual Lymph Drainage, Education re Life-long lymphedema Management, Education re Skin Care and Precautions, Education re Self Massage Techniques, Education re Correct Donning Tech,Care&Wearing Sched Comp Garments, Caregiver Training, Home Program - Visit Plan Frequency: 1x/Week Duration: 4 Weeks TEXT: Thank you for the opportunity to evaluate your patient. For Medicare and Medicare HMO plans, please review the plan of care and approve it. It will need to be FAXED BACK to us at [phone] for Medicare purposes. Please let me know if there are questions or concerns regarding this plan of care. Physician Signature: Date:
--- NOTE | 2021-11-19 13:27 | HP.OT.NRP ---
EMEYR VYAS was seen in my office for initial evaluation on 06/04/21. The following Plan of Care was established for this patient: Initial Frequency: 1x/Week Initial Duration: 4 Weeks Plan: cont tx Anticipated Interventions: Education re Diagnosis, Manual Lymph Drainage, Education re Life-long lymphedema Management, Education re Skin Care and Precautions, Education re Self Massage Techniques, Education re Correct Donning Tech,Care&Wearing Sched Comp Garments, Caregiver Training, Home Program This patient was last seen in our office 06/04/21. Pertinent comments regarding their Occupational therapy will appear below: pt seen for 3 OT sessions ed. on head neck lymphedema mt- pt has not returned to clinic and is d/c due to time lapse in services. At this point I will be discontinuing this patient from occupational therapy. I would be happy to see this patient again in the future if found appropriate by the physician. Thank you! Mirlande Hunter, OTR/L, CHT
== END 2021-06-21 19:00 | disposition home or self-care (01) ==
LOC: OT 09:00
PROVIDERS: PCP Family Medicine; Referring Provider Student in an Organized Health Care Education/Training Program; Visit Provider Student in an Organized Health Care Education/Training Program
DX: C79.89 Secondary malignant neoplasm of other specified sites (principal); C80.1 Malignant (primary) neoplasm, unspecified
CPT/HCPCS: 97110; 97140; 97166; 97530

== ENCOUNTER → 2021-06-28 | Outpatient (CLI) | payer OTHER, SELFPAY ==
--- NOTE | 2021-06-28 13:34 | SP.MBSS_ITS ---
Modified Barium Swallow - Patient Information Study Date: 06/28/21 Study Time: 13:00 Direct Billable Minutes: 60 Total Minutes procedure & reportin Diagnosis: Mass of neck with history of malignant neoplasm (R22.1) Referring Physician: Jose A Yu Reason for Referral: Objectively assess swallow function, risk for aspiration, and determine recommendations for least restrictive diet texture and compensatory strategies to improve safety of swallow. 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 From 03/04/2021 ? 04/17/2021 he received definitive chemoradiation therapy. He was followed by speech therapy during and after radiation treatment to address dysphagia. He required use of PEG tube in his last week of radiation treatment. In the weeks following completion of treatment, he resumed a full oral diet and has since had PEG tube removed. The patient presents with persistent xerostomia and hypogeusia since radiation treatment. He denies difficulty swallowing food and drink. He reports not consistently completing oropharyngeal exercises program at home. Current Diet Ordered: Regular Textures / Thin Liquids Dentition: WNL Mental Status: WNL Respiratory Status: Oxygenating on Room Air - Penetration-Aspiration Scale Penetration-Aspiration Scale: OBJECTIVE ASSESSMENT OF SWALLOW FUNCTION (QUANTITATIVE ? PER TRIAL): PENETRATION / ASPIRATION SCALE (MARIANO): 1 = does not enter airway 2 = enters airway/above vocal folds/ejected 3 = enters airway/above vocal folds/not ejected 4 = enters airway/contacts vocal folds/ejected 5 = enters airway/contacts vocal folds/not ejected 6 = enters airway/below vocal folds/ejected 7 = enters airway/below vocal folds/not ejected despite effort 8 = enters airway/below vocal folds/no effort VIDEOFLOROSCOPIC SCALE SCORE (MARIANO): Grade I = aspiration of material that has penetrated into the laryngeal vestibule, intact cough reflex Grade II = aspiration < 10 % of the bolus, intact cough reflex Grade III = aspiration of < 10 % of the bolus, reduced cough reflex or aspiration of > 10 % of the bolus, intact cough reflex Grade IV = aspiration of > 10 % of the bolus, reduced cough reflex - Penetration-Aspiration Scale Score Thin Liquid via teaspoon Result: 1= does not enter airway Thin Liquid via teaspoon Trial 2 Result: 1= does not enter airway Thin Liquid via small single sip from cup Result: 2= enter airway/above vocal folds/ejected Thin Liquid via sequential sips from cup Result: 1= does not enter airway [place] Thick Liquid via small single sip from cup Result: 1= does not enter airway [place] Thick Liquid via small single sip from cup Result: 1= does not enter airway Pudding via teaspoon with esophageal screen Result: 1= does not enter airway Cookie Result: 1= does not enter airway Thin Liquid via single sip from straw Result: 2= enter airway/above vocal folds/ejected Thin Liquid via sequential sips from straw Result: 2= enter airway/above vocal folds/ejected - Oral Phase Labial Seal: No Labial Escape Tongue Control During Bolus Hold: Cohesive bolus between tongue to palatal seal Bolus Preparation/Mastication: Timely and efficient chewing and mashing Bolus Transport/Lingual Motion: Brisk tongue motion Oral Residue: Residue collection on oral structures - Pharyngeal Phase Initiation of Pharyngeal Swallow: Bolus head in valleculae Soft Palate Elevation: Trace column of contrast/air between soft palate and pharyngeal wall Laryngeal Elevation: Partial superior movement thyroid cart/partial apprx aryt- epig petiole Anterior Hyoid Excursion: Partial anterior movement Epiglottic Movement: Complete inversion Laryngeal Vestibule Closure at Height of Swallow: Incomplete; narrow column of air/contrast in laryngeal vestibule Pharyngeal Stripping Wave: Present - complete Pharyngoesophageal Segment Opening: Complete distension and complete duration; no obstruction of flow Tongue Base Retraction: Trace column of contrast between tongue base & post. pharyngeal wall Pharyngeal Residue: Trace residue within or on pharyngeal structures - Esophageal Phase Esophageal Clearance: Complete clearance - Treatment Strategies Effects of treatment strategies attemped:: Decreased rate = effective. - Diagnosis/Impression Diagnosis: Mild oropharyngeal phase dysphagia (R13.12) Impression: The oral phase is marked by mild oral residue after the swallow of cookie, likely due to xerostomia. He required piecemeal deglutition, but independently cleared cookie contrast with second swallow. The pharyngeal phase is marked by mildly decreased airway closure during the swallow. He demonstrates mildly decreased laryngeal elevation and anterior hyoid excursion. He presented with laryngeal penetration above the vocal folds with full ejection from the laryngeal vestibule of thin liquid via cup, thin liquid via straw, and thin liquid via sequential sips by straw. No aspiration observed during the study. - Recommendations Diet: Regular Textures, Thin Liquids Compensatory Strategies: Small Bites, Small Sips, Slow Rate - Sips one at a time, Alternate bites/solids and sips/liquids, Sitting upright Recommend Repeat Modified Barium Swallow: Yes - 6 months from this study for ongoing assessment of swallow function and aspiration risk s/p radiation Need for Skilled Speech Therapy Services: Yes Comment: LABEL CODER recommended STRICT ADHERENCE to home exercises program currently in place. The patient admitted to poor adherence to program he received from outpatient therapy. LABEL CODER provided thorough education re: negative impact of terminal gauger effects of radiation on swallow function (radiation fibrosis, lymphedema, decreased ROM, gradual decline in swallow function, increased risk for aspiration and aspiration related illness). Patient verbalized good understanding in home exercise program at most recent speech therapy session. LABEL CODER is recommending completion of each exercise X10-20 reps, 3-5X daily. Pt verbalized understanding of exercise program and education. LABEL CODER recommended continued OP speech therapy if need for additional review of home exercise program or increased difficulty consuming food or drink. Will plan for repeat MBS study in 6 months. Education Completed: 1. Described result of evaluation., 7. Pt requires further education on strategies & risks. - Status Active ST Patient: Active - Contact Information [facility] Speech Therapy:: Eugenia Berg M.A. [facility]-LABEL CODER Speech-Language Pathologist [facility] [address] [place] [address] [email or web address] [phone] 06/28/21 13:49
== END | disposition home or self-care (01) ==
PROVIDERS: PCP Family Medicine; Referring Provider Radiology Radiation Oncology; Visit Provider Radiology Radiation Oncology
DX: R22.1 Localized swelling, mass and lump, neck (principal)
CPT/HCPCS: 74230; 92611

== ENCOUNTER → 2021-10-25 | Outpatient (CLI) | payer OTHER, SELFPAY ==
[2021-10-25 10:52] LABS: T4 Free Direct 0.65 ng/dL (0.76-1.46); Thyroid Stim Hormone (TSH) 2.04 uIU/mL (0.358-3.74)
[2021-10-25 17:49] LABS: Xtra Tube EP Lab EXTRA TUBE
== END | disposition home or self-care (01) ==
LOC: LAB 09:47
PROVIDERS: PCP Family Medicine; Referring Provider Student in an Organized Health Care Education/Training Program; Visit Provider Student in an Organized Health Care Education/Training Program
DX: C79.89 Secondary malignant neoplasm of other specified sites (principal); C80.1 Malignant (primary) neoplasm, unspecified
CPT/HCPCS: 36415; 84439; 84443

== ENCOUNTER → 2021-12-27 | Outpatient (CLI) | payer OTHER, SELFPAY ==
--- NOTE | 2021-12-27 13:28 | ST.MBS ---
Modified Barium Swallow - Patient Information Study Date: 12/27/21 Study Time: 13:00 Direct Billable Minutes: 60 Total Minutes procedure & reportin Diagnosis: Sec. malignant neoplasm of neck w/unknown prim. site (C79.89) Referring Physician: Shilo Vera Reason for Referral: Objectively assess swallow function and aspiration risk to determine recommendations for least restrictive diet textures and compensatory strategies to decrease risk for aspiration. 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 From 03/04/2021 ? 04/17/2021 he received definitive chemoradiation therapy. He was followed by speech therapy during and after radiation treatment to address dysphagia. He required use of PEG tube in his last week of radiation treatment. In the weeks following completion of treatment, he resumed a full oral diet and has since had PEG tube removed. MBSS 06/28/2021 revealed mild oropharyngeal dysphagia and recommended Regular textures / Thin liquids with compensatory strategies to decrease risk for aspiration. TRIMMING ASSEMBLER recommended repeat MBSS in 6 months for ongoing assessment of swallow function and to monitor risk for worsening dysphagia s/p radiation. Pt reports persisting mild xerostomia and dysgeusia. He denies difficulty swallowing at this time. Current Diet Ordered: Regular textures / Thin liquids Dentition: WNL Mental Status: WNL Respiratory Status: Oxygenating on Room Air - Penetration-Aspiration Scale Penetration-Aspiration Scale: OBJECTIVE ASSESSMENT OF SWALLOW FUNCTION (QUANTITATIVE ? PER TRIAL): PENETRATION / ASPIRATION SCALE (MARIANO): 1 = does not enter airway 2 = enters airway/above vocal folds/ejected 3 = enters airway/above vocal folds/not ejected 4 = enters airway/contacts vocal folds/ejected 5 = enters airway/contacts vocal folds/not ejected 6 = enters airway/below vocal folds/ejected 7 = enters airway/below vocal folds/not ejected despite effort 8 = enters airway/below vocal folds/no effort VIDEOFLOROSCOPIC SCALE SCORE (MARIANO): Grade I = aspiration of material that has penetrated into the laryngeal vestibule, intact cough reflex Grade II = aspiration < 10 % of the bolus, intact cough reflex Grade III = aspiration of < 10 % of the bolus, reduced cough reflex or aspiration of > 10 % of the bolus, intact cough reflex Grade IV = aspiration of > 10 % of the bolus, reduced cough reflex - Penetration-Aspiration Scale Score Thin Liquid via teaspoon Result: 4= enters airway/contacts vocal folds/ejected Thin Liquid via teaspoon Trial 2 Result: 1= does not enter airway Thin Liquid via small single sip from cup Result: 1= does not enter airway Thin Liquid via sequential sips from cup Result: 1= does not enter airway [place] Thick Liquid via small single sip from cup Result: 1= does not enter airway [place] Thick Liquid via small single sip from cup Result: 1= does not enter airway Pudding via teaspoon Result: 1= does not enter airway 1/2 Cookie Result: 1= does not enter airway Thin Liquid via single sip from straw Result: 2= enter airway/above vocal folds/ejected - Oral Phase Labial Seal: No Labial Escape Tongue Control During Bolus Hold: Posterior escape of less than half of bolus Bolus Preparation/Mastication: Timely and efficient chewing and mashing Bolus Transport/Lingual Motion: Delayed initiation of tongue motion Oral Residue: Trace residue lining oral structures - Pharyngeal Phase Initiation of Pharyngeal Swallow: Bolus head in pyriforms - thin by tsp and straw Soft Palate Elevation: No bolus between soft palate and pharyngeal wall Laryngeal Elevation: Partial superior movement thyroid cart/partial apprx aryt-epig petiole Anterior Hyoid Excursion: Partial anterior movement Epiglottic Movement: Complete inversion Laryngeal Vestibule Closure at Height of Swallow: Incomplete; narrow column of air/contrast in laryngeal vestibule Pharyngeal Stripping Wave: Present - complete Pharyngoesophageal Segment Opening: Complete distension and complete duration; no obstruction of flow Tongue Base Retraction: Trace column of contrast between tongue base & post. pharyngeal wall Pharyngeal Residue: Trace residue within or on pharyngeal structures - Diagnosis/Impression Diagnosis: Mild oropharyngeal phase dysphagia (R13.12) Impression: Overall, the patient presented with similar swallow function as compared to previous MBSS 6 months prior. Timely mastication. He demonstrated improved oral clearance of solids; however, he had mildly decreased bolus control and increased delay initiating the swallow with thin liquids by tsp and straw. He demonstrated laryngeal penetration of thin liquids by tsp to the vocal folds with full ejection from the laryngeal vestibule. Additional trace penetration of sip by straw that fully ejected from the laryngeal vestibule. No aspiration observed during the study. - Recommendations Diet: Regular Textures, Thin Liquids Compensatory Strategies: Small Bites, Small Sips, Slow Rate, Alternate bites/solids and sips/liquids, Sitting upright Recommend Repeat Modified Barium Swallow: Yes - Repeat MBSS recommended in 1 year to monitor the patient for risk for worsening dysphagia s/p radiation to the neck. Need for Skilled Speech Therapy Services: No Comment: Pt admitted to poor adherence to home exercise program. TRIMMING ASSEMBLER re-educated pt in the importance for strict adherence to oropharyngeal exercises to maintain optimal swallow function s/p radiation treatment to the neck due to group home effects of radiation, such as radiation fibrosis and lymphedema. TRIMMING ASSEMBLER recommends completion of oropharyngeal exercise program 3-5X daily. Pt verbalized understanding. TRIMMING ASSEMBLER recommended neck ROM as needed with sensation of neck tension to promote improved soft tissue mobility of the anterior neck and provided instruction with return demonstration from pt. No outpatient dysphagia therapy is warranted at this time. If the patient requires re-instruction in home exercise program or is experiencing increased s/s of aspiration or difficulty swallowing, TRIMMING ASSEMBLER recommends calling in to return for additional speech therapy services. Education Completed: 1. Described result of evaluation., 5. Patient demonstrates recommended strategies. - Status Active ST Patient: Active - Contact Information [facility] Speech Therapy:: Eugenia Berg M.A. [facility]-TRIMMING ASSEMBLER Speech-Language Pathologist [address] [address] [email or web address] [phone] 12/27/21 13:43
== END | disposition home or self-care (01) ==
LOC: RAD 13:00
PROVIDERS: PCP Family Medicine; Referring Provider Student in an Organized Health Care Education/Training Program; Visit Provider Student in an Organized Health Care Education/Training Program
DX: R22.1 Localized swelling, mass and lump, neck (principal)
CPT/HCPCS: 74230; 92611

== ENCOUNTER → 2023-02-20 | Outpatient (CLI) | payer OTHER, SELFPAY ==
--- NOTE | 2023-02-20 14:09 | ST.MBS ---
Modified Barium Swallow Patient Information Study Date: 02/20/23 Study Time: 13:00 Direct Billable Minutes: 92 Total Minutes procedure & reportin Diagnosis: Sec malignant neoplasm of neck w/ unknown primary site C79.89 Referring Physician: Shilo Vera Reason for Referral: Objectively assess swallow function, assess risk for aspiration, and determine recommendations for least restrictive diet textures and compensatory strategies to improve safety of swallow. 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 From 03/04/2021 ? 04/17/2021 he received definitive chemoradiation therapy. He was followed by speech therapy during and after radiation treatment to address dysphagia. He required use of PEG tube in his last week of radiation treatment. In the weeks following completion of treatment, he resumed a full oral diet and has since had PEG tube removed. Two previous MBSS (06/28/2021, 12/27/2021). Most recent MBSS revealed mild oropharyngeal dysphagia and recommended Regular textures / Thin liquids with compensatory strategies to decrease risk for aspiration. FRIT MAKER recommended repeat MBSS in 1 year for ongoing assessment of swallow function and to monitor risk for worsening dysphagia s/p radiation. Pt reports persisting mild xerostomia and moderate dysgeusia. He reports trouble swallowing tough meat, such as steak or hamburger. He feels that it becomes stuck. Also, acidic foods/sauces burn when he swallows. No known history of GERD. He admits to not completing maintenance oropharyngeal exercise program. Current Diet Ordered: Regular textures / Thin liquid - Easy to chew meat Dentition: WNL Mental Status: WNL Respiratory Status: Oxygenating on Room Air Penetration-Aspiration Scale Penetration-Aspiration Scale: OBJECTIVE ASSESSMENT OF SWALLOW FUNCTION (QUANTITATIVE ? PER TRIAL): PENETRATION / ASPIRATION SCALE (MARIANO): 1 = does not enter airway 2 = enters airway/above vocal folds/ejected 3 = enters airway/above vocal folds/not ejected 4 = enters airway/contacts vocal folds/ejected 5 = enters airway/contacts vocal folds/not ejected 6 = enters airway/below vocal folds/ejected 7 = enters airway/below vocal folds/not ejected despite effort 8 = enters airway/below vocal folds/no effort VIDEOFLOROSCOPIC SCALE SCORE (MARIANO): Grade I = aspiration of material that has penetrated into the laryngeal vestibule, intact cough reflex Grade II = aspiration < 10 % of the bolus, intact cough reflex Grade III = aspiration of < 10 % of the bolus, reduced cough reflex or aspiration of > 10 % of the bolus, intact cough reflex Grade IV = aspiration of > 10 % of the bolus, reduced cough reflex Penetration-Aspiration Scale Score Thin Liquid via teaspoon: Result: 1= does not enter airway Thin Liquid via teaspoon Trial 2: Result: 1= does not enter airway Thin Liquid via large single sip: cup: Result: 1= does not enter airway Thin Liquid via sequential sips: cup: Result: 1= does not enter airway Comment: Esophageal screening - complete clearance. [place] Thick Liquid via small single sip: cup: Result: 1= does not enter airway Pudding via teaspoon: Result: 1= does not enter airway Whole cookie: Result: 1= does not enter airway Comment: Esophageal screen - retention throughout mid and lower esophagus, which cleared when provided thin liquid wash via cup. Thin Liquid via sequential sips:straw: Result: 4= enters airway/contacts vocal folds/ejected Comment: Reflexive throat clear Oral Phase Labial Seal: No Labial Escape Tongue Control During Bolus Hold: Posterior escape of less than half of bolus Bolus Preparation/Mastication: Timely and efficient chewing and mashing Bolus Transport/Lingual Motion: Brisk tongue motion Oral Residue: Residue collection on oral structures Pharyngeal Phase Initiation of Pharyngeal Swallow: Bolus head in pyriforms Soft Palate Elevation: Trace column of contrast/air between soft palate and pharyngeal wall Laryngeal Elevation: Partial superior movement thyroid cart/partial apprx aryt-epig petiole Anterior Hyoid Excursion: Partial anterior movement Epiglottic Movement: Complete inversion Laryngeal Vestibule Closure at Height of Swallow: Incomplete; narrow column of air/contrast in laryngeal vestibule Pharyngeal Stripping Wave: Present - diminished Pharyngoesophageal Segment Opening: Complete distension and complete duration; no obstruction of flow Tongue Base Retraction: Narrow column of contrast between tongue base & post. pharyngeal wall Pharyngeal Residue: Collection of residue within or on pharyngeal structures Esophageal Phase Esophageal Clearance: Esophageal retention Diagnosis/Impression Diagnosis: Mild oropharyngeal phase dysphagia R13.12, Esophageal dysphagia R13.14 Impression: The oral phase is primarily marked by... -Decreased bolus control with <1/2 of the bolus spilling posteriorly to the pyriforms prior to swallow onset observed with thin liquids especially. -Mild oral residue of cookie, which cleared with independent use of second swallow, likely due to xerostomia. The pharyngeal phase is primarily marked by... -Mildly decreased airway closure during the swallow due to partial anterior hyoid excursion and laryngeal elevation. -Trace laryngeal penetration to the vocal folds with sequential sips by straw with full ejection and reflexive throat clear. -Mildly decreased tongue base retraction and pharyngeal stripping wave, resulting in mild pharyngeal residues after the swallow with pudding and cookie. Residue mostly cleared with use of second swallow, which he independently initiated. The esophageal phase is primarily marked by... -Minimal retention of liquids and pudding seen in UES and lower esophagus. Recommendations Diet: Regular Textures (Easy to chew meats) and Thin Liquids Comment: For dry textures, either chop or chew thoroughly and add extra sauces/gravies; 4-5 smaller, more frequent meals vs. 3 larger meals; STOP if sensation of retention does not clear with liquid wash and resume at a later time. Compensatory Strategies: Small Bites, Small Sips, Slow Rate, Alternate bites/solids and sips/liquids (1:1 ratio), Sitting upright and Remain sitting upright for 30 minutes after PO intake Recommend Repeat Modified Barium Swallow: Yes Comment: Plan for repeat MBSS in 6-12 months to continue to monitor swallow function s/p radiation, as pt is at increased risk for worsening dysphagia and aspiration risk related to penitentiary effects of chemoradiation. Need for Skilled Speech Therapy Services: Yes Comment: Please follow-up with OP ST for continued education re: diet textures and strategies to decrease risk for aspiration and esophageal retention, as well as for implementation of oropharyngeal exercise program to promote improved tongue base retraction, laryngeal elevation, and pharyngeal contraction. Recommended Referrals: GI Consult Education Completed: 1. Described result of evaluation., 2. Pt understands evaluation & agrees with goals and treatment plan., 4. Family/caregivers understand evaluation & agree w/ goals & tx plan. (, Jeanette, present for the assessment. ) and 7. Pt requires further education on strategies & risks. (Recommend further education re: oropharyngeal exercise program.) Status Active ST Patient: Active Contact Information [facility] Speech Therapy:: Eugenia Berg M.A. [facility]-FRIT MAKER Speech-Language Pathologist [facility] [address] [place] [address] [email or web address] [phone]
== END | disposition home or self-care (01) ==
LOC: RAD 12:46
PROVIDERS: PCP Family Medicine; Referring Provider Student in an Organized Health Care Education/Training Program; Visit Provider Student in an Organized Health Care Education/Training Program
DX: C79.89 Secondary malignant neoplasm of other specified sites (principal); C80.1 Malignant (primary) neoplasm, unspecified
CPT/HCPCS: 74230; 92611

== ENCOUNTER → 2024-02-12 | Outpatient (CLI) | payer OTHER, SELFPAY ==
--- NOTE | 2024-02-12 12:27 | ST.MBS ---
Modified Barium Swallow Patient Information Study Date: 02/12/24 Study Time: 12:45 Direct Billable Minutes: 65 Total Minutes procedure & reportin Diagnosis: Sec malignant neoplasm of neck w/ unknown primary site C79.89 Referring Physician: Shilo Vera Reason for Referral: Objectively assess swallow function, assess risk for aspiration, and determine recommendations for least restrictive diet textures and compensatory strategies to improve safety of swallow. 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 From 03/04/2021?04/17/2021 he received definitive chemoradiation therapy. Dysphagia Hx: He was followed by speech therapy during and after radiation treatment to address dysphagia. He required use of PEG tube in his last week of radiation treatment. In the weeks following completion of treatment, he resumed a full oral diet and has since had PEG tube removed. Three previous MBSS (06/28/2021, 12/27/2021, 02/20/2023). Most recent MBSS revealed mild oropharyngeal dysphagia and recommended Regular textures w/ Easy to Chew meats / Thin liquids with compensatory strategies to decrease risk for aspiration. MEDIA SERVICES COORDINATOR also recommended follow up dysphagia therapy to re-implement oropharyngeal exercises, as well as GI consult. Currently, pt reports minimal xerostomia and mild dysgeusia. He reports some trouble swallowing tough meat, such as steak or hamburger. He feels that it becomes stuck. He requires a drink after each bite, which clears the food a majority of the time. He admits to not completing maintenance oropharyngeal exercise program and no GI follow up as recommended by previous MBSS. Current Diet Ordered: Regular textures / Thin liquids Dentition: WNL Mental Status: WNL Respiratory Status: Oxygenating on Room Air Penetration-Aspiration Scale Penetration-Aspiration Scale: OBJECTIVE ASSESSMENT OF SWALLOW FUNCTION (QUANTITATIVE ? PER TRIAL): PENETRATION / ASPIRATION SCALE (MARIANO): 1 = does not enter airway 2 = enters airway/above vocal folds/ejected 3 = enters airway/above vocal folds/not ejected 4 = enters airway/contacts vocal folds/ejected 5 = enters airway/contacts vocal folds/not ejected 6 = enters airway/below vocal folds/ejected 7 = enters airway/below vocal folds/not ejected despite effort 8 = enters airway/below vocal folds/no effort VIDEOFLOROSCOPIC SCALE SCORE (MARIANO): Grade I = aspiration of material that has penetrated into the laryngeal vestibule, intact cough reflex Grade II = aspiration < 10 % of the bolus, intact cough reflex Grade III = aspiration of < 10 % of the bolus, reduced cough reflex or aspiration of > 10 % of the bolus, intact cough reflex Grade IV = aspiration of > 10 % of the bolus, reduced cough reflex Penetration-Aspiration Scale Score Thin Liquid via teaspoon: Result: 1= does not enter airway Thin Liquid via teaspoon Trial 2: Result: 1= does not enter airway Thin Liquid via small single sip: cup: Result: 1= does not enter airway Thin Liquid via sequential sips: cup: Result: 1= does not enter airway Comment: Esophageal screen - Retention in the lower esophagus. Retrograde flow through the LES. Pudding via teaspoon: Result: 1= does not enter airway Comment: Esophageal screen - Retention throughout the upper and middle. Thin Liquid via single sip: straw: Result: 1= does not enter airway Comment: Esophageal screen - Somewhat improved clearance of pudding contrast w/ liquid wash; however, continued esophageal retention of pudding in middle esophagus. 1/2 Cookie: Result: 1= does not enter airway Comment: Esophageal screen - Retention of cookie in the middle and lower esophagus. Thin liquid wash provided during screen cleared a majority of cookie; however, retrograde flow of thin through the LES. Thin Liquid via sequential sips:straw: Result: 1= does not enter airway Oral Phase Labial Seal: No Labial Escape Tongue Control During Bolus Hold: Posterior escape of less than half of bolus Bolus Preparation/Mastication: Timely and efficient chewing and mashing Bolus Transport/Lingual Motion: Brisk tongue motion Oral Residue: Residue collection on oral structures Pharyngeal Phase Initiation of Pharyngeal Swallow: Bolus head at posterior laryngeal surgace of epiglottis Soft Palate Elevation: No bolus between soft palate and pharyngeal wall Laryngeal Elevation: Comp. Superior move thyroid cart w/comp. apprx arytenoid cart-epig pet Anterior Hyoid Excursion: Partial anterior movement Epiglottic Movement: Complete inversion Laryngeal Vestibule Closure at Height of Swallow: Complete; no air/contrast in laryngeal vestibule Pharyngeal Stripping Wave: Present - complete Pharyngoesophageal Segment Opening: Complete distension and complete duration; no obstruction of flow Tongue Base Retraction: Narrow column of contrast between tongue base & post. pharyngeal wall Pharyngeal Residue: Collection of residue within or on pharyngeal structures Esophageal Phase Esophageal Clearance: Esophageal retention w/ retrograde flow below pharyngoesophageal seg. Diagnosis/Impression Diagnosis: Mild pharyngeal dysphagia R13.12 Impression: Oral phase of the swallow appears grossly WNL. The pharyngeal phase is primarily marked by... -Mildly decreased tongue base retraction, resulting in mild pharyngeal residues after the swallow with cookie. Residue mostly cleared with independent use of second swallow. Improved pharyngeal clearance of pudding as compared to previous study. -No laryngeal penetration or aspiration during the study. The esophageal phase is primarily marked by... -Esophageal retention of liquids in the lower esophagus. Retrograde flow of liquids through the LES 2X. -Retention of pudding and cookie in the esophagus. Liquid wash was somewhat effective in clearing barium contrast of pudding and cookie. Increased esophageal retention of cookie as compared to previous MBSS. Recommendations Diet: Regular Textures and Thin Liquids Comment: If sensation of retention, reflux, or regurgitation despite use of strategies, STOP meal and resume at a later time. Compensatory Strategies: Small Bites, Small Sips, Slow Rate, Alternate bites/solids and sips/liquids (1:1 ratio) and Sitting upright (60 min after a meal) Recommend Repeat Modified Barium Swallow: Yes Comment: Plan for repeat MBSS in 6-12 months to continue to monitor swallow function s/p radiation, as pt is at increased risk for worsening dysphagia and aspiration risk related to penitentiary effects of chemoradiation. Need for Skilled Speech Therapy Services: Yes Comment: MEDIA SERVICES COORDINATOR is recommending follow-up ST for re-implementation of maintenance home oropharyngeal exercise program. Pt does believe he still has the exercises at home to re-start exercise program. If pt is unable to locate swallowing exercises or requires re-instruction, please reach out to [facility] to schedule w/ OP ST. Recommended Referrals: GI Consult Education Completed: 1. Described result of evaluation. Status Active ST Patient: Active Contact Information [facility] Speech Therapy:: Eugenia Berg M.A. [facility]-MEDIA SERVICES COORDINATOR Speech-Language Pathologist [address] [address] [email or web address] [phone]
== END | disposition home or self-care (01) ==
LOC: RAD 12:54
PROVIDERS: PCP Family Medicine; Referring Provider Student in an Organized Health Care Education/Training Program; Visit Provider Student in an Organized Health Care Education/Training Program
DX: C79.89 Secondary malignant neoplasm of other specified sites (principal)
CPT/HCPCS: 74230; 92611

== ENCOUNTER → 2024-04-08 | Outpatient (CLI) | payer OTHER, SELFPAY ==
--- NOTE | 2024-04-08 09:40 | RAD_ITS ---
PROCEDURE: CHEST PA AND LATERAL REASON FOR EXAM: History of head and neck carcinoma. TECHNIQUE: Frontal and lateral views of the chest. COMPARISON: None. FINDINGS: [id number] right hemidiaphragm elevation is seen. The heart size is normal. The mediastinal contour is unremarkable. The lungs are clear. No focal pneumonic process is noted. Mild thoracic spine degenerative changes are noted. No acute osseous process is seen. RAD/Chest PA and Lateral IMPRESSION: No focal pneumonic process is seen. No evidence of acute cardiopulmonary disea se. Reading Location: [id number]
== END | disposition home or self-care (01) ==
LOC: RAD 09:38
PROVIDERS: PCP Family Medicine; Referring Provider Student in an Organized Health Care Education/Training Program; Visit Provider Student in an Organized Health Care Education/Training Program
DX: C80.1 Malignant (primary) neoplasm, unspecified (principal); C79.89 Secondary malignant neoplasm of other specified sites
CPT/HCPCS: 71046

== ENCOUNTER 2024-06-08 08:17 | Day surgery (SDC) | payer OTHER, SELFPAY ==
[2024-06-08] VITALS (7 sets, daily range): BP systolic 136–153; BP diastolic 70–84; PULSE 59–66; RESP 16–18; TEMP 35.9–36.9; O2SAT 94–98; BMI 37.6
--- NOTE | 2024-06-08 09:18 | PCM.PRE.AN2 ---
ASA Classification* ASA Classification ASA Classification: 2 Assessment & Plan Anesthesia* Anesthesia Assessment Anesthesia Assessment: Discussed sedation and/or anesthesia options, risks, benefits, and alternatives with patient/parents/legal guardian/POA. Questions invited. The patient/parents/legal guardian/POA seems to understand and agrees to proceed with anesthesia plan. Reviewed the physical assessment, medical history, allergy history and patient home medications list prior to surgery/procedure/anesthetic and documented any changes. Performed airway and anesthesia risk assessments. Anesthesia Type Anesthesia Type: MAC Anesthesia Focused Assessment* Temperature: 96.7 F Pulse Rate: 62 Respiratory Rate: 16 Pulse Ox: 98 Airway Assessment Mouth opens: >3 cm Mallampati Score: II Focused Labs Anesthesia Preop lab: CBC WBC 6.4 K/mm3 (4.4-11.0) 02/11/24 15:10 02/11/24 RBC 5.18 M/mm3 (4.6-6.2) 02/11/24 15:10 02/11/24 Hgb 15.7 g/dL (13.0-16.5) 02/11/24 15:10 02/11/24 Hct 45.1 % (40-54) 02/11/24 15:10 02/11/24 Plt Count 215 K/mm3 (150-450) 02/11/24 15:10 02/11/24 CHEMISTRY Potassium 4.0 mmol/L (3.5-5.1) 02/11/24 15:10 02/11/24 Sodium 139 mmol/L (136-145) 02/11/24 15:10 02/11/24 Magnesium 2.0 mg/dL (1.6-2.3) 04/17/21 09:45 04/17/21 Phosphorus 2.8 mg/dL (2.5-4.9) 04/03/21 08:45 04/03/21 BUN 14 mg/dL (7-18) 02/11/24 15:10 02/11/24 Creatinine 1.03 mg/dL (0.70-1.30) 02/11/24 15:10 02/11/24 Glucose 99 mg/dL (74-106) 02/11/24 15:10 02/11/24 POC Glucose 414 mg/dL (70-110) H 03/14/21 13:18 03/14/21 TSH 4.820 uIU/mL (0.358-3.740) H 02/11/24 15:10 02/11/24 COAG Pre-Assessment Diagnosis/Proposed Procedure Planned Operative Procedure(s): EGD Anesthesia History Anesthesia History - front end architect: Anesthesia History - front end architect Hx Hospitalization No 06/06/24 09:50 Any Problems With Anesthesia No 06/06/24 09:50 Cholinesterase deficiency No 06/06/24 09:50 You/Your Family Experience No 06/06/24 09:50 fever (hyperthermia) with Relationship Recent Exposure to Contagious No 06/08/24 08:48 Disease Does patient have nerve No 06/06/24 09:50 stimulator Patient instructed to have device shut off --Does patient have Pacemaker No 06/08/24 08:48 or ICD? When Was Last Pacemaker Check QUESTION #4 FULL TEXT: You/Your Family Experience fever (hyperthermia) with Anesthesia Last Oral Intake Last Oral intake: Last Oral Intake NPO since 18:00 06/08/24 08:48 Meds taken in AM with sips of Yes 06/08/24 08:48 water? Meds patient instructed to metoprolol 06/08/24 08:48 take am of surgery PONV PONV - front end architect: PONV - front end architect Female No 06/06/24 09:50 HX of Motion Sickness No 06/06/24 09:50 HX of N/V After Surgery No 06/06/24 09:50 Non-Smoker Yes 06/06/24 09:50 Duration of Surgery greater No 06/06/24 09:50 than 60 minutes Number of Risk Factors 1 06/06/24 09:50 PONV Score Low Risk 06/06/24 09:50 Height & Weight Height & Weight: Anesthesia: Height & Weight Height 5 ft 10 in 06/08/24 08:48 Weight: 119 kg 06/08/24 08:48 Body Mass Index (BMI) 37.6 06/08/24 08:48 Respiratory Assessment Respiratory Assessment - front end architect: Respiratory Tract Infection Hx - front end architect Hx Respiratory Tract Infection No 06/06/24 09:50 STOP Sleep Apnea STOP Sleep Apnea - front end architect: STOP Sleep Apnea - front end architect Hx Hypertension Yes: PER PT, CONTROLLED ON 06/06/24 09:50 MEDS Hx Sleep Apnea No 06/06/24 09:50 CPAP No 06/06/24 09:50 BIPAP Do you snore loudly (louder No 06/06/24 09:50 than talking or can be heard Do you often feel tired/ No 06/06/24 09:50 fatigued/ sleepy during daytime? Has anyone observed you stop No 06/06/24 09:50 breathing during sleep? STOP Results Negative 06/06/24 09:50 QUESTION #5 FULL TEXT : Do you snore loudly (louder than talking or can be heard through closed doors)? 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 Specify any problems Hx of Preganancy in last 3 N/A 06/06/24 09:50 Months Nurse Filling Out Transfusion MGRIFFITH 06/06/24 09:50 & Questions: Date: 06/06/24 06/06/24 09:50 Time: 09:52 06/06/24 09:50 Patient unable to answer at this time (ie. confused, unrespo /Reproduction History /Reproductive History - front end architect: /Reproductive Hx- front end architect Hx Now No 06/06/24 09:50 Gestational Age (in weeks): EDC: Hx Hx Para Hx Section SAB No 06/06/24 09:50 PFSH Medical History Bilateral lower extremity edema Port-A-Cath in place Encounter for education HTN (hypertension), benign Wears glasses Cancer Alcohol use Non-smoker Leg cramps Home Medications ?Medication ?Instructions ?Recorded ?Last Taken ?Type metoprolol succinate 50 mg 50 mg PO DAILY 08/08/21 06/08/24 History tablet,extended release 24 hr Allergy/AdvReac Type Severity Reaction Status Date / Time No Known Allergies Allergy Verified 06/08/24 08:46 Family History Brother Cancer CANCER OF RIB AND ANOTHER BROTHER MELANOMA Surgical History History of colonoscopy History of removal of Port-a-Cath History of percutaneous endoscopic gastrostomy Hx of tonsillectomy Social History household members: spouse Smoking Status: Never smoker second hand exposure: No alcohol intake: current alcohol intake frequency: holidays/special occasions only details: occasionally substance use type: does not use nolan/christian: Gnosticist seatbelt use: always do you feel safe at home: Yes Review of Systems (Anesthesia) ROS Narrative System reviewed and no additional complaints, except as documented.
--- NOTE | 2024-06-08 09:29 | PCM.HP.STD ---
HPI - General General Date of Admission: 06/08/24 Date of Service: 06/08/24 Chief Complaint: dysphagia HPI Narrative Chief Complaint: difficulty swallowing Details: Pt has a PMHx of neck cancer treated with chemotherapy and radiation. Pt last treatment was about 3 years ago. During the last 2 weeks of radiation he was unable to swallow so he had a PEG tube placed. He no longer has the PEG tube. He is now having issues with swallow dry foods like steak and chicken. He finds himself chewing his food extra and eating small bites. The food eventually will pass with water and he does not have to regurgitate the bolus. He has been working with speech pathology who encouraged him to come to GI for an evaluation. Barium swallow form 2023 showing retention in the esophagus. He has never had an EGD before but did have a colonoscopy about one year ago that was normal. He denies abd pain, n/v, constipation, diarrhea, heartburn or blood in his stool. Modified Barium Swallow 12.6.24; The esophageal phase is primarily marked by... -Esophageal retention of liquids in the lower esophagus. Retrograde flow of liquids through the LES 2X. -Retention of pudding and cookie in the esophagus. Liquid wash was somewhat effective in clearing barium contrast of pudding and cookie. Increased esophageal retention of cookie as compared to previous [facility] Medical History Bilateral lower extremity edema Port-A-Cath in place Encounter for education HTN (hypertension), benign Wears glasses Cancer Alcohol use Non-smoker Leg cramps Home Medications ?Medication ?Instructions ?Recorded ?Last Taken ?Type metoprolol succinate 50 mg 50 mg PO DAILY 08/08/21 06/08/24 History tablet,extended release 24 hr Allergy/AdvReac Type Severity Reaction Status Date / Time No Known Allergies Allergy Verified 06/08/24 08:46 Family History Brother Cancer CANCER OF RIB AND ANOTHER BROTHER MELANOMA Surgical History History of colonoscopy History of removal of Port-a-Cath History of percutaneous endoscopic gastrostomy Hx of tonsillectomy Social History household members: spouse Smoking Status: Never smoker second hand exposure: No alcohol intake: current alcohol intake frequency: holidays/special occasions only details: occasionally substance use type: does not use nolan/tenriism: Sabianist seatbelt use: always do you feel safe at home: Yes ROS Constitutional Constitutional: Denies fatigue, fever(s), poor appetite, weight gain or weight loss Gastrointestinal Gastrointestinal: Denies belching, bloating, change in bowel habits, change in stool character, chewing difficulty, coffee ground emesis, constipation, cramping, diarrhea, dyspepsia, dysphagia, early satiety, excessive flatus, fecal incontinence, heartburn, hematemesis, hematochezia, hemorrhoids, loose stools, melena, nausea, odynophagia, rectal bleeding, tenesmus, vomiting or weight changes Vital Signs Vital Signs Vital Signs: 06/08/24 08:48 06/08/24 08:48 06/08/24 09:18 Temperature 96.7 F L 96.7 F L Temperature Source Temporal Pulse Rate 62 62 Respiratory Rate 16 16 Respiratory Pattern Normal Blood Pressure Source Monitor Blood Pressure Position Semi-Fowlers Blood Pressure Location Right Arm Pulse Ox 98 98 Oxygen Delivery Method Room Air Weight Weight: 262 lb 5.601 oz Body Mass Index (BMI) 37.6 Physical Exam Const alert, oriented x3 and no apparent distress General Appearance: cooperative and comfortable HEENT normocephalic, external ears normal and external nose normal Eyes PERRL, conjunctivae normal and no scleral icterus Neck Neck Narrative: + lymphedema submandibular area. Lymph Lymphatic: no lymphadenopathy noted Chest inspection of chest normal Resp normal respiratory effort, no use of accessory muscles and clear to auscultation bilaterally Cardio regular rate, regular rhythm, S1 normal heart sound and S2 normal heart sound GI normal to inspection, nondistended, normoactive bowel sounds no CVA tenderness Back/Spine no CVA tenderness and thoracic and lumbar spine normal to inspection Extremity normal to inspection and no clubbing, cyanosis or edema Skin no rashes or lesions noted Neuro oriented x3, CN's II-XII intact bilaterally and moves all extremities Psych mental status grossly normal Assessment & Plan Assessment/Plan (1) Dysphagia: PLAN: Assessment and Plan Assessment and Plan (1) Dysphagia: Status: Acute Plan: This is a 58 yo male pt here today for evaluation of difficulty swallowing. Pt has a PMHx of neck cancer s/p chemotherapy and radiation. He is in remission and has not had treatment in 3 years. During radiation he did have issues with swallowing which results in a PEG tube placement. he continues to have swallowing issues intermittently with certain foods. Modified barium swallow from 2023 showing retention in the esophagus worse form the year prior. He will undergo EGD to assess his upper GI tract. -EGD with dilation if indicated -f/u if needed
--- NOTE | 2024-06-08 09:30 | EGD_PTH ---
PATIENT: EMERY VYSA LOC: EN U#:[id number] AGE/SX: 58/M ROOM: RE06/08/[address]: Dr. Ho Lnadrum DO : 1965 BED: DIS: 06/08/2024 SPEC #: [id number] RECD: 06/08/24 12:34 STATUS: CHIDI ARIELLA #: [id number] ZOHRA: 06/08/24 09:[address]: Ho Landrum DEPT: SURGICAL PATHOLOGY RECD BY: Eduardo Stuart ENTERED: 06/08/24 13:45 SP TYPE: EGD BIOPSY OT DR: Dr. Pheonix Oseguera MD Tissues: A - Esophagus, NOS Procedures: Surgery Specimen Level IV HEADER OPERATION: EGD with biopsy and dilatation PRE-OP DIAGNOSIS: Dysphagia TISSUE SUBMITTED: A- Distal esophagus biopsy MICROSCOPIC DIAGNOSIS A. Distal Esophagus, Dysphagia, Biopsy: - Squamous mucosa with mild reactive change, negative for eosinophils. - Columnar mucosa negative for goblet cell metaplasia. - Negative for dysplasia. MICROSCOPIC DESCRIPTION Slides are reviewed. GROSS DESCRIPTION A. Received in formalin in a container labeled with the patient's name, date of , and distal esophagus biopsy is a 0.4 x 0.4 x 0.3 cm fragment of carter-pink mucosal tissue. Submitted in toto in A1. SB 06/08/2024 CPT:31171
--- NOTE | 2024-06-08 10:20 | PCM.POST.ANE ---
Anesthesia: Postop Eval I Current Vital Signs Temperature: 97.2 F Pulse Rate: 65 Blood Pressure: 153/76 Respiratory Rate: 18 Pulse Ox: 95 Assessment Airway patent: Yes Spontaneous unlabored respirations: Yes nausea: No Vomiting: No Anesthesia Complication: No Fluid Hydration Crystalloid volume administer (ml): 20 Total IV fluid infused: 20 Progress Note Anesthesia document: Postop Eval 1 completed: Yes
--- NOTE | 2024-06-08 10:24 | OP.CCLET_ITS ---
06/08/2024 Phoenix Oseguera [address] [place] [address] [place] [address] Re : Upper GI endoscopy procedure for Scott Hannah Dear Dr. Oseguera This procedure was performed on Saturday, June 08, 2024. My impressions and recommendations are as follows: Impressions : - Abnormal esophageal motility, suspicious for esophageal spasm. Dilated. Biopsied. - Small hiatal hernia. - Normal stomach. - Normal second portion of the duodenum. Recommendations : - Discharge patient to home. - Resume previous diet. - Continue present medications. - Await pathology results. My findings are described in the full procedure note, which is enclosed. If I can be of further assistance, please feel free to contact me at . Sincerely, Ho Landrum, 06/08/2024 10:23:26 AM This report has been signed electronically.
--- NOTE | 2024-06-08 10:24 | OP.EGD_ITS ---
Patient Name: Scott Hannah Procedure Date: 06/08/2024 10:05 AM Date of : 1965 Age: 58 Procedure: Upper GI endoscopy Indications: Dysphagia Providers: DO Tremayne Jimenez MD: Phoenix Oseguera Medicines: Monitored Anesthesia Care Patient Profile: This is a 58 year old male. Refer to note in patient chart for documentation of history and physical. Patient has symptoms of dysphagia with both liquids and solids. Complications: No immediate complications. Procedure: Pre-Anesthesia Assessment: - Prior to the procedure, a History and Physical was performed, and patient medications and allergies were reviewed. The patient is competent. The risks and benefits of the procedure and the sedation options and risks were discussed with the patient. All questions were answered and informed consent was obtained. Patient identification and proposed procedure were verified by the physician in the pre-procedure area. Mental Status Examination: alert and oriented. Airway Examination: normal oropharyngeal airway and neck mobility. Respiratory Examination: clear to auscultation. CV Examination: normal. Prophylactic Antibiotics: The patient does not require prophylactic antibiotics. Prior Anticoagulants: The patient has taken no anticoagulant or antiplatelet agents except for NSAID medication. ASA Grade Assessment: II - A patient with mild systemic disease. After reviewing the risks and benefits, the patient was deemed in satisfactory condition to undergo the procedure. The anesthesia plan was to use monitored anesthesia care (MAC). Immediately prior to administration of medications, the patient was re-assessed for adequacy to receive sedatives. The heart rate, respiratory rate, oxygen saturations, blood pressure, adequacy of pulmonary ventilation, and response to care were monitored throughout the procedure. The physical status of the patient was re-assessed after the procedure. After obtaining informed consent, the endoscope was passed under direct vision. Throughout the procedure, the patient's blood pressure, pulse, and oxygen saturations were monitored continuously. The gastroscope was introduced through the mouth, and advanced to the second part of duodenum. The upper GI endoscopy was accomplished without difficulty. The patient tolerated the procedure well. Scope In: 10:09:22 AM Scope Out: 10:14:42 AM Total Procedure Duration Time 0 hours 5 minutes 20 seconds Findings: Abnormal motility was noted in the esophagus. The cricopharyngeus was abnormal. There are extra peristaltic waves in the esophageal body. The distal esophagus/lower esophageal sphincter is spastic, but gives up passage to the endoscope. Tertiary peristaltic waves are noted. A guidewire was placed and the scope was withdrawn. Dilation was performed with a Savary dilator with no resistance at 60 Fr. The dilation site was examined and showed moderate improvement in luminal narrowing. Estimated blood loss was minimal. Biopsies were taken with a cold forceps for histology. Verification of patient identification for the specimen was done. Estimated blood loss was minimal. A small hiatal hernia was present. The entire examined stomach was normal. The second portion of the duodenum was normal. Impression: - Abnormal esophageal motility, suspicious for esophageal spasm. Dilated. Biopsied. - Small hiatal hernia. - Normal stomach. - Normal second portion of the duodenum. Recommendation: - Discharge patient to home. - Resume previous diet. - Continue present medications. - Await pathology results. Procedure Code(s): --- Professional --- 88569, Esophagogastroduodenoscopy, flexible, transoral; with insertion of guide wire followed by passage of dilator(s) through esophagus over guide wire [id number], 59,51, Esophagogastroduodenoscopy, flexible, transoral; with biopsy, single or multiple CPT copyright 2021 [employer]. All rights reserved. The codes documented in this report are preliminary and upon insurance coder review may be revised to meet current compliance requirements. Ho Landrum DO 06/08/2024 10:23:26 AM This report has been signed electronically. Number of Addenda: 0 Note Initiated On: 06/08/2024 10:05 AM
--- NOTE | 2024-06-08 10:28 | POSTOPAN2_ITS ---
Anesthesia Postop Eval I Sum Postop Eval Completion status Anesthesia document: Postop Eval 1 completed: Yes Anesthesia Postop Eval I Summary Anesthesia Postop Eval I Summary: Anesthesia Postop Eval I: Assessment Summary Airway patent Yes 06/08/24 10:20 CASE [email or web address] Spontaneous unlabored Yes 06/08/24 10:20 CASE [email or web address] respirations Mental status nausea No 06/08/24 10:20 CASE [email or web address] Vomiting No 06/08/24 10:20 CASE [email or web address] Anesthesia Postop Eval I: Fluid Summary Crystalloid volume administer 20 06/08/24 10:20 CASE [email or web address] (ml) Colloids volume administered ( ml) Blood Product volume administered (ml) Total IV fluid infused 20 06/08/24 10:20 CASE [email or web address] Anesthesia Postop Eval I: Summary Notes Anesthesia Complication No 06/08/24 10:20 CASE [email or web address] Anesthesia Complication Comment: Post-operative progress note Anesthesia: Postop Eval II Evaluation Mental status: Awake Pain Level: 0 nausea: No Vomiting: No
--- NOTE | 2024-06-08 10:28 | PCM.POSTANE2 ---
Anesthesia Postop Eval I Sum Postop Eval Completion status Anesthesia document: Postop Eval 1 completed: Yes Anesthesia Postop Eval I Summary Anesthesia Postop Eval I Summary: Anesthesia Postop Eval I: Assessment Summary Airway patent Yes 06/08/24 10:20 PLANT CONTROL [email or web address] Spontaneous unlabored Yes 06/08/24 10:20 PLANT CONTROL OPERATOR.[email or web address] respirations Mental status nausea No 06/08/24 10:20 PLANT CONTROL OPERATOR.CSIR Vomiting No 06/08/24 10:20 PLANT CONTROL OPERATOR.[email or web address] Anesthesia Postop Eval I: Fluid Summary Crystalloid volume administer 20 06/08/24 10:20 PLANT CONTROL OPERATOR.CSIR (ml) Colloids volume administered ( ml) Blood Product volume administered (ml) Total IV fluid infused 20 06/08/24 10:20 PLANT CONTROL OPERATOR.CSIR Anesthesia Postop Eval I: Summary Notes Anesthesia Complication No 06/08/24 10:20 PLANT CONTROL OPERATOR.CSIR Anesthesia Complication Comment: Post-operative progress note Anesthesia: Postop Eval II Evaluation Mental status: Awake Pain Level: 0 nausea: No Vomiting: No
== END 2024-06-08 10:53 | disposition home or self-care (01) ==
LOC: EN 08:17 → AC 08:23
PROVIDERS: PCP Family Medicine; Referring Provider Family Medicine; Visit Provider Internal Medicine Gastroenterology
PROC: 0DJ08ZZ Inspection of Upper Intestinal Tract, Via Natural or Artificial Opening Endoscopic (ICD-10-PCS; CPT 43235; principal; 2024-06-08 09:25)
DX: R13.10 Dysphagia, unspecified (principal); K44.9 Diaphragmatic hernia without obstruction or gangrene; Z92.21 Personal history of antineoplastic chemotherapy; I10 Essential (primary) hypertension; Z85.89 Personal history of malignant neoplasm of other organs and systems; Z92.3 Personal history of irradiation; Z79.899 Other long term (current) drug therapy; K22.89 Other specified disease of esophagus
CPT/HCPCS: 43248; 43239; 88305; A4216; C1769; J2405

== ENCOUNTER → 2025-02-09 | Outpatient (CLI) | payer OTHER, SELFPAY ==
--- NOTE | 2025-02-09 14:11 | ST.MBS ---
Modified Barium Swallow Patient Information Study Date: 02/09/25 Study Time: 14:15 Direct Billable Minutes: 66 Total Minutes procedure & reportin Diagnosis: Sec malignant neoplasm of neck w/ unknown primary site C79.89 Referring Physician: Shilo Vera Reason for Referral: Assess swallow function, assess risk for aspiration, and determine recommendations for least restrictive diet textures and compensatory strategies to improve swallowing safety. 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 From 03/04/2021?04/17/2021 he received definitive chemoradiation therapy. Dysphagia Hx: He was followed by speech therapy during and after radiation treatment to address dysphagia. He required use of PEG tube in his last week of radiation treatment. In the weeks following completion of treatment, he resumed a full oral diet and has since had PEG tube removed. Three previous MBSS (06/28/2021, 12/27/2021, 02/20/2023, 02/12/2024). Most recent MBSS revealed mild pharyngeal dysphagia and recommended Regular Textures and Thin Liquids w/ the following precautions: If sensation of retention, reflux, or regurgitation despite use of strategies, STOP meal and resume at a later time. Compensatory Strategies: Small Bites, Small Sips, Slow Rate, Alternate bites/solids and sips/liquids (1:1 ratio) and Sitting upright (60 min after a meal). REAL ESTATE ACQUISITION ANALYST also recommended resuming home oropharyngeal exercises, as well as GI consult. Currently, pt reports minimal xerostomia and mild-moderate dysgeusia. He reports occ trouble swallowing tough meats, but they clear w/ a liquid wash. Pt saw Dr. Landrum for EGD 06/08/2024, which showed abnormal esophageal motility, suspicious for esophageal spasm (dilated and biopsied), small hiatal hernia. Pt reports that his swallowing has seemed better since EGD. He denies ever experiencing regurgitation. Current Diet Ordered: Regular textures / Thin liquids Dentition: WNL Mental Status: WNL Respiratory Status: Oxygenating on Room Air Penetration-Aspiration Scale Penetration-Aspiration Scale: OBJECTIVE ASSESSMENT OF SWALLOW FUNCTION (QUANTITATIVE ? PER TRIAL): PENETRATION / ASPIRATION SCALE (MARIANO): 1 = does not enter airway 2 = enters airway/above vocal folds/ejected 3 = enters airway/above vocal folds/not ejected 4 = enters airway/contacts vocal folds/ejected 5 = enters airway/contacts vocal folds/not ejected 6 = enters airway/below vocal folds/ejected 7 = enters airway/below vocal folds/not ejected despite effort 8 = enters airway/below vocal folds/no effort VIDEOFLOROSCOPIC SCALE SCORE (MARIANO): Grade I = aspiration of material that has penetrated into the laryngeal vestibule, intact cough reflex Grade II = aspiration < 10 % of the bolus, intact cough reflex Grade III = aspiration of < 10 % of the bolus, reduced cough reflex or aspiration of > 10 % of the bolus, intact cough reflex Grade IV = aspiration of > 10 % of the bolus, reduced cough reflex Penetration-Aspiration Scale Score Thin Liquid via teaspoon: Result: 1= does not enter airway Thin Liquid via small single sip: cup: Result: 2= enter airway/above vocal folds/ejected Thin Liquid via sequential sips: cup: Result: 1= does not enter airway Pudding via teaspoon: Result: 1= does not enter airway Thin Liquid via single sip: straw: Result: 1= does not enter airway 1/2 Cookie: Result: 1= does not enter airway Oral Phase Labial Seal: No Labial Escape Tongue Control During Bolus Hold: Posterior escape of less than half of bolus Bolus Preparation/Mastication: Timely and efficient chewing and mashing Bolus Transport/Lingual Motion: Brisk tongue motion Oral Residue: Residue collection on oral structures (Mild cookie residue likely d/t xerostomia, cleared w/ additional swallows) Pharyngeal Phase Initiation of Pharyngeal Swallow: Bolus head in pyriforms Soft Palate Elevation: Trace column of contrast/air between soft palate and pharyngeal wall Laryngeal Elevation: Comp. Superior move thyroid cart w/comp. apprx arytenoid cart-epig pet Anterior Hyoid Excursion: Partial anterior movement Epiglottic Movement: Complete inversion Laryngeal Vestibule Closure at Height of Swallow: Incomplete; narrow column of air/contrast in laryngeal vestibule (trace laryngeal penetration 1X) Pharyngeal Stripping Wave: Present - complete Pharyngoesophageal Segment Opening: Complete distension and complete duration; no obstruction of flow Tongue Base Retraction: Narrow column of contrast between tongue base & post. pharyngeal wall Pharyngeal Residue: Collection of residue within or on pharyngeal structures Esophageal Phase Esophageal Clearance: Esophageal retention Diagnosis/Impression Diagnosis: Mild pharyngeal dysphagia R13.12 MBS Impressions: Oral phase of the swallow appears grossly WNL. The pharyngeal phase is primarily marked by... -Mildly decreased tongue base retraction, resulting in mild pharyngeal residues after the swallow with cookie. Residue cleared with independent use of second swallow. -Trace laryngeal penetration w/ complete ejection w/ 1 sip, no aspiration during the study. The esophageal phase is primarily marked by... -Esophageal retention of pudding throughout the esophagus, which somewhat cleared w/ two liquid washes. Please continue to follow w/ OP GI as recommended. Recommendations Diet: Regular Textures and Thin Liquids Comment: If sensation of retention or reflux despite use of strategies, STOP meal and resume at a later time. Compensatory Strategies: Small Bites, Small Sips, Slow Rate, Multiple Swallows, Alternate bites/solids and sips/liquids (as needed) and Sitting upright (60 min after a meal) Recommend Repeat Modified Barium Swallow: Yes Comment: Plan for repeat MBSS in 12 months to continue to monitor swallow function s/p radiation, as pt is at increased risk for worsening dysphagia and aspiration risk related to senior care effects of chemoradiation. Need for Skilled Speech Therapy Services: No Comment: REAL ESTATE ACQUISITION ANALYST recommends resuming home oropharyngeal exercise program. Education Completed: 1. Described result of evaluation. Status Active ST Patient: Active Contact Information [facility] Speech Therapy:: Eugenia Berg M.A. [facility]-REAL ESTATE ACQUISITION ANALYST Speech-Language Pathologist [address] [address] [email or web address] [phone]
== END | disposition home or self-care (01) ==
LOC: RAD 13:59
PROVIDERS: PCP Family Medicine; Referring Provider Student in an Organized Health Care Education/Training Program; Visit Provider Student in an Organized Health Care Education/Training Program
DX: C79.89 Secondary malignant neoplasm of other specified sites (principal); C80.1 Malignant (primary) neoplasm, unspecified
CPT/HCPCS: 74230; 92611